=== PATIENT | female | born 1995 | race Caucasian/White ===

== ENCOUNTER → 2019-05-17 | Outpatient (CLI) | payer MEDICAID ==
--- NOTE | 2019-05-17 14:41 | Diagnostic Imaging Report ---
INDICATION: survey. TECHNIQUE: Multiple real-time grayscale images were obtained over the gravid uterus. COMPARISON: None FINDINGS: There is a single live fetus in a cephalic presentation. heart rate was recorded at 150 beats per minute. Placenta is anterior. Amniotic fluid volume is normal. Cervical length is 5.8 cm. survey demonstrates kidneys, bladder and stomach to be unremarkable. The brain is unremarkable. There is a four-chamber heart. There is a three-vessel cord with normal insertion. The spine is unremarkable. Maternal adnexa is unremarkable. Biometrical measurements are as follows: Biparietal 4.7 cm, age 20 weeks 3 days. Head circumference 17.5 cm, age 20 weeks 0 days. Abdominal circumference 14.7 cm, age 20 weeks 1 days. Femur length 3.4 cm, age 20 weeks 1 days. Sonographic estimate age: 20 weeks 3 days. Sonographic estimated date of delivery: 10/01/19. Estimated Weight: 343 gm (+/- 50 gm). LMP percentile: 23%. heart rate: 150 beats per minute. number: 1 of 1. IMPRESSION: Single live IUP of 20 weeks and 3 days gestational age. The estimated date of confinement sonographically is 10/01/2019. Dictated by: Dictated on workstation # [id number]
== END ==
LOC: RAD 13:10
PROVIDERS: ATTEND Obstetrics & Gynecology
DX: Z34.92 Encounter for supervision of normal pregnancy, unspecified, second trimester (principal); Z3A.20 20 weeks gestation of pregnancy
CPT/HCPCS: 76805

== ENCOUNTER 2019-09-26 06:00 | Inpatient (IN) | payer MEDICAID ==
[~2019-09-26] VITALS: Ht 170.2 cm; Wt 92.4 kg
--- NOTE | 2019-10-01 19:00 | NUR ---
CHANDLER WISE presented to unit via ambulation from home, accompanied by SO, for INDUCTION. CHANDLER WISE weighed, gowned, voided, and to bed. EFHM and TOCO applied, VS taken. CHANDLER WISE oriented to bed controls, call light, TV, heat, and A/C controls.
[2019-10-01 19:13] VITALS: BP 116/58
--- NOTE | 2019-10-01 19:43 | NUR ---
Called Dr. Shoemaker to inform that pt. here, new orders rc'd to use Antepartum & Cytotec PO protocols, may give Ambien 5 mg PO prn sleep, pt. may have breakfast if no change. POC reviewed w/pt, questions answered, pt. verbalized understanding.
[2019-10-01] MEDS ORDERED: LACTATED RINGERS 1,000 ML IV SCH (19:47)
[2019-10-01] MEDS ORDERED: MISOPROSTOL 100 MCG (CYTOTEC) TAB ONE (19:49)
[2019-10-01] MEDS ORDERED: D5 LR IV SOLUTION 1,000 ML IV ONE (19:49)
[2019-10-01] MEDS ORDERED: LACTATED RINGERS 1,000 ML IV ONE (19:49)
[2019-10-01] MEDS ORDERED: MISOPROSTOL 100 MCG (CYTOTEC) TAB PO NR (20:00)
[2019-10-01] MEDS ORDERED: TERBUTALINE INJ 1 MG/ML (BRETHINE) AMP SC PRN (20:00)
[2019-10-01] MEDS ORDERED: MINERAL OIL CONCENTRATE 99.9% 15 ML UDC TOP PRN (20:00)
--- NOTE | 2019-10-01 20:15 | NUR ---
Called Dr. Shoemaker, update given including FHR decel & variables, will cont. to monitor & give entire bolus before proceeding w/giving Cytotec.
[2019-10-01] MEDS ORDERED: PREN-142 PO (20:31)
[2019-10-01 20:42] LABS: BASOPHILS % (AUTO) 0 % (0-10); EOSINOPHILS # (AUTO) 0.1 10^3/uL (0.0-0.3); EOSINOPHILS % (AUTO) 1 % (0-10); HEMATOCRIT 31 % (35-52); HEMOGLOBIN 10.9 G/DL (11.5-16.0); LYMPHOCYTES # (AUTO) 2.7 X 10^3 (1.0-4.0); LYMPHOCYTES % (AUTO) 27 % (12-44); MEAN CORPUSCULAR HEMOGLOBIN 30 PG (25-34); MEAN CORPUSCULAR HGB CONC 35 G/DL (32-36); MEAN CORPUSCULAR VOLUME 86 FL (80-99); MONOCYTES # (AUTO) 0.6 X 10^3 (0.0-1.0); MONOCYTES % (AUTO) 6 % (0-12); NEUTROPHILS # (AUTO) 6.5 X 10^3 (1.8-7.8); NEUTROPHILS % (AUTO) 66 % (42-75); PLATELET COUNT 187 10^3/uL (130-400); RED CELL DISTRIBUTION WIDTH 12.8 % (10.0-14.5); WHITE BLOOD COUNT 9.9 10^3/uL (4.3-11.0)
[2019-10-01] MEDS: D5 LR IV SOLUTION 1,000 ML IV SCH (21:01)
[2019-10-01 21:14] VITALS: BP 110/54
[2019-10-01 21:43] VITALS: BP 121/70
[2019-10-01] MEDS ORDERED: CATHETER FLUSH 10 ML SYR IV SCH (22:00)
[2019-10-01 22:14] VITALS: BP 111/56
[2019-10-01 22:37] VITALS: BP 115/69
[2019-10-01] MEDS ORDERED: ZOLPIDEM 5 MG (AMBIEN) TAB PO ONE (23:30)
[2019-10-01 23:36] VITALS: BP 133/75
[2019-10-02] VITALS (63 sets, daily range): BP systolic 97–138; BP diastolic 44–95
--- NOTE | 2019-10-02 00:44 | NUR ---
Called Dr. Shoemaker to give update & request pain meds, no answer, left message.
--- NOTE | 2019-10-02 00:48 | NUR ---
Text Dr. Shoemaker, no reply.
--- NOTE | 2019-10-02 00:55 | NUR ---
Called Dr. Shoemaker, no answer.
[2019-10-02] MEDS: MISOPROSTOL 100 MCG (CYTOTEC) TAB PO SCH ×2 (01:00→04:00)
--- NOTE | 2019-10-02 01:05 | NUR ---
Called Dr. Shoemaker, no answer.
--- NOTE | 2019-10-02 01:07 | NUR ---
Called Dr. Garcia, OC, update given & new order rc'd for Morphine 5 mg IV X1. Will give.
[2019-10-02] MEDS ORDERED: morphine INJ 10 MG/ML 1ML (SYR OR VIAL) ONE (01:10)
[2019-10-02] MEDS ORDERED: morphine INJ 4 MG/ML 1 ML (VIAL/SYRINGE) IVP PRN (01:15)
[2019-10-02] MEDS ORDERED: morphine INJ 10 MG/ML 1ML (SYR OR VIAL) IVP ONE (02:30)
--- NOTE | 2019-10-02 03:23 | NUR ---
Dr. Shoemaker returned call, update given, will get epidural if pt requesting pain meds again.
[2019-10-02] MEDS ORDERED: SUFENTA 0.6MCG/ML BUPIVA 0.125 100 ML ONE (03:42)
[2019-10-02] MEDS: D5 LR IV SOLUTION 1,000 ML IV SCH ×2 (04:45→12:45)
[2019-10-02] MEDS: EPIDURAL (SUFENTA 0.6MCG/ML BUPIVA 0.125%) 100 ML BAG EPI SCH ×2 (04:59→12:08)
[2019-10-02] MEDS ORDERED: LACTATED RINGERS 1,000 ML IV SCH (05:05)
[2019-10-02] MEDS ORDERED: METOCLOPRAMIDE INJ 10 MG/2 ML (REGLAN) IV PRN (05:15)
[2019-10-02] MEDS ORDERED: NALOXONE 0.4 MG/ML 1 ML (NARCAN) VIAL IV PRN ×2 (05:15)
[2019-10-02] MEDS ORDERED: ONDANSETRON 4 MG/2 ML (SDV) Z0FRAN IV PRN (05:15)
[2019-10-02] MEDS ORDERED: diphenhydrAMINE 50 MG/ML INJ (BENADRYL) IV PRN (05:15)
[2019-10-02] MEDS ORDERED: OXYTOCIN/NORMAL SALINE 500 ML IV ONE (07:47)
[2019-10-02] MEDS ORDERED: FLU QUADRIvalent (5+ YOA) 2019-2020 (AFLURIA) 0.5 ML IM ONE (08:00)
[2019-10-02] MEDS ORDERED: OXYTOCIN/NORMAL SALINE 500 ML IV SCH ×2 (08:55→16:44)
[2019-10-02] MEDS ORDERED: LIDOCAINE 1% INJ 20 ML 20 ML VIAL ONE (13:07)
[2019-10-02] MEDS ORDERED: WITCH HAZEL(TUCKS) 40 EA JAR TOP PRN (16:45)
[2019-10-02] MEDS ORDERED: BENZOCAINE/MENTHOL (DERMOPLAST) 56 ML CAN TP PRN (16:45)
[2019-10-02] MEDS ORDERED: TETANUS,DIPTH,PERTUSS P/F (BOOSTRIX) 0.5 ML VIAL IM ONE (16:45)
[2019-10-02] MEDS ORDERED: MEASLES,MUMPS,RUBELLA 1 EA INJ SQ ONE (16:45)
[2019-10-02] MEDS ORDERED: DIBUCAINE (NUPERCAINAL) 1% OINT 30 GM TOP PRN (16:45)
--- NOTE | 2019-10-02 16:48 | OB Labor & Delivery Record ---
Vag Delivery Note Vag Delivery Note Date of Delivery: 10/02/19 Preoperative Diagnosis: Jeferson Garcia is a 24 /Para 1 / 0,Gestational Age 40 weeks for social induction to prevent the complications of post maturity Postoperative Diagnosis: Same Surgeon: ROXY COREAS Anesthesia: epidural Delivery Type: vaginal Findings: Viable female , apgars pending, weight pending Lacerations: left vaginal laceration Intact placenta with 3 vessel cord. No nuchal cord, body cord or shoulder dystocia \ Estimated Blood Loss: 300 ml Complications: None Condition: Stable Description of Procedure: The patient is a 24 year old female who presented for induction of labor. She was admitted and informed consent was obtained. Her labor course was remarkable for misoprostol, epidural placement and oxytocin augmentation. She had AROM at complete dilation. There was thin meconium noted. She progressed to complete dilatation and began to push. She was then set up for delivery. The 's head was delivered atraumatically in the JOLLY position. The shoulders and remainder of the infant's body were then delivered without difficulty. Upon delivery, the head was held below the level of the perineum and the mouth and nares were bulb suctioned. The cord was doubly clamped and cut and the was handed off to the pediatric staff. An intact placenta with 3-vessel cord delivered via Adriana and there was found to be minimal bleeding.~ Vigorous fundal massage was performed and the fundus was found to be firm. IV oxytocin was given. Examination of the vagina and perineum revealed a left vaginal sulcal laceration repaired in the usual fashion with 3-0 vicryl suture. Following the repair, sponge, instrument and needle counts were correct. Mom and baby were both in stable condition in the labor suite. Vitals - Labs Vital Signs - I&O Vital Signs Date Time Temp Pulse Resp B/P (MAP) Pulse Ox O2 Delivery O2 Flow Rate FiO2 10/02/19 14:09 82 18 104/46 (65) Room Air 10/02/19 13:54 71 18 113/44 (67) Room Air 10/02/19 13:40 72 18 122/55 (77) Room Air 10/02/19 12:53 77 18 125/63 (83) 99 Room Air 10/02/19 12:40 74 18 118/60 (79) 99 Room Air 10/02/19 12:23 73 18 108/64 (79) 97 Room Air 10/02/19 12:10 75 18 115/69 (84) 96 Room Air 10/02/19 11:54 82 18 119/59 (79) 98 Room Air 10/02/19 11:38 75 18 108/55 (72) 98 Room Air 10/02/19 11:28 36.2 10/02/19 11:24 82 18 119/63 (81) 99 Room Air 10/02/19 11:14 36.2 10/02/19 11:09 100 18 129/74 (92) 99 Room Air 10/02/19 10:52 67 18 102/61 (75) 96 Room Air 10/02/19 10:40 75 18 117/71 (86) 100 Room Air 10/02/19 10:28 36.4 88 18 130/60 (83) 99 Room Air 10/02/19 10:10 77 18 123/64 (83) 100 Room Air 10/02/19 09:52 70 18 109/58 (75) 99 Room Air 10/02/19 09:51 36.2 10/02/19 09:39 80 18 124/70 (88) 98 Room Air 10/02/19 09:08 78 18 126/73 (90) 98 Room Air 10/02/19 08:53 86 18 113/67 (82) 100 Room Air 10/02/19 08:38 77 18 119/69 (86) 97 Room Air 10/02/19 08:17 83 18 124/75 (91) 100 Room Air 10/02/19 08:02 89 18 123/65 (84) 98 Room Air 10/02/19 07:57 36.7 10/02/19 07:47 103 18 135/62 (86) 100 Room Air 10/02/19 07:40 36.4 10/02/19 07:32 67 18 101/52 (68) 99 Room Air 10/02/19 07:17 69 18 99/55 (70) 99 Room Air 10/02/19 07:00 69 18 97/55 (69) 98 Room Air 10/02/19 06:45 74 18 97/56 (70) 96 Room Air 10/02/19 06:30 71 18 101/58 (72) 98 Room Air 10/02/19 06:15 36.1 76 18 97/54 (68) 97 Room Air 10/02/19 06:00 90 18 111/63 (79) 97 Room Air 10/02/19 05:45 68 18 106/59 (75) 100 Room Air 10/02/19 05:41 78 18 117/61 (79) 99 Room Air 10/02/19 05:35 105 18 117/68 (84) 100 Room Air 10/02/19 05:30 99 18 125/67 (86) 100 Room Air 10/02/19 05:25 77 18 112/58 (76) 99 Room Air 10/02/19 05:23 85 18 112/57 (75) 98 Room Air 10/02/19 05:20 78 18 110/57 (74) 98 Room Air 10/02/19 05:18 73 18 115/59 (77) 99 Room Air 10/02/19 05:15 66 18 110/54 (72) 100 Room Air 10/02/19 05:11 77 18 118/58 (78) 100 Room Air 10/02/19 05:08 93 18 123/57 (79) 99 Room Air 10/02/19 05:05 75 18 123/58 (79) 99 Room Air 10/02/19 05:02 81 18 120/58 (78) 98 Room Air 10/02/19 04:59 90 18 134/63 (86) 98 Room Air 10/02/19 04:56 94 18 130/70 (90) 100 Room Air 10/02/19 04:53 86 18 127/78 (94) 99 Room Air 10/02/19 04:50 85 18 120/65 (83) 99 Room Air 10/02/19 04:47 91 18 130/75 (93) 97 Room Air 10/02/19 04:43 86 18 138/63 (88) 98 Room Air 10/02/19 04:37 36.1 90 18 126/95 (105) Room Air 10/02/19 03:37 36.3 10/02/19 02:37 89 18 132/82 (99) Room Air 10/02/19 01:36 70 18 125/67 (86) Room Air 10/02/19 00:44 94 18 134/93 (107) Room Air 10/01/19 23:36 86 18 133/75 (94) Room Air 10/01/19 22:37 36.4 80 18 115/69 (84) Room Air 10/01/19 22:14 82 18 111/56 (74) Room Air 10/01/19 21:43 77 18 121/70 (87) Room Air 10/01/19 21:14 82 18 110/54 (72) Room Air 10/01/19 19:13 36.7 102 18 98 Room Air I & O 10/02/19 07:00 Intake Total 3000 ml Balance 3000 ml Labs Laboratory Tests 10/01/19 20:16: White Blood Count 9.9, Red Blood Count 3.64L, Hemoglobin 10.9L, Hematocrit 31L, Mean Corpuscular Volume 86, Mean Corpuscular Hemoglobin 30, Mean Corpuscular Hemoglobin Concent 35, Red Cell Distribution Width 12.8, Platelet Count 187, Mean Platelet Volume 10.0, Neutrophils (%) (Auto) 66, Lymphocytes (%) (Auto) 27, Monocytes (%) (Auto) 6, Eosinophils (%) (Auto) 1, Basophils (%) (Auto) 0, Neut rophils # (Auto) 6.5, Lymphocytes # (Auto) 2.7, Monocytes # (Auto) 0.6, Eosinophils # (Auto) 0.1, Basophils # (Auto) 0.0 ROXY COREAS DO Oct 02, 2019 16:48 POS
[2019-10-02] MEDS: IBUPROFEN 600 MG (MOTRIN) TAB PO SCH (18:17)
--- NOTE | 2019-10-02 19:00 | NUR ---
REFER TO LABOR FLOW SHEET.
--- NOTE | 2019-10-02 21:00 | NUR ---
ASSESSMENTS DONE. PT C/O IV HURTING. ATTEMPTED TO FLUSH, PT PULLING ARM BACK SAYING IT HURTS TO BAD. PT WANTING IT REMOVED. INFORMED HER IF SHE MAY HAVE TO HAVE ANOTHER ONE IN. STATES SHE WOULD BE OK WITH THAT. IV REMOVED AT THIS TIME.
[2019-10-02] MEDS: DOCUSATE SODIUM 100 MG (COLACE) CAP PO SCH (21:04)
[2019-10-02] MEDS: ACETAMINOPHEN 500 MG TAB (TYLENOL) PO SCH (21:04)
[2019-10-02] MEDS ORDERED: CATHETER FLUSH 10 ML SYR IV SCH (22:00)
[2019-10-02] MEDS ORDERED: IBUP-844 PO (22:48)
[2019-10-02] MEDS ORDERED: FERR325T18 PO (22:48)
[2019-10-02] MEDS ORDERED: ACET-77 PO (22:48)
--- NOTE | 2019-10-02 22:50 | Discharge Inst-Women's Service ---
Discharge Inst-Women's Serv Depart Medication/Instructions New, Converted or Re-Newed RX: Transmitted to Pharmacy Final Diagnosis term vaginal delivery Problems Reviewed?: Yes Consults/Follow Up Additional Follow Up: Yes (2 weeks with Minerva; 6 week post exam) Activity Activity: Activity as Tolerated Driving Instructions: You May Drive NO SMOKING: NO SMOKING Nothing Inside Vagina: No Douching, No [place], No Tampons Diet Discharge Diet: No Restrictions Symptoms to Report to : Swelling Increased, Bleeding Excessive, Fever Over 101 Degrees F, Vaginal Bleeding Increase, Cramps in Feet or Legs, Vaginal Discharge ROXY Thorpe DO Oct 02, 2019 22:50 POS
[2019-10-03 00:30] VITALS: BP 115/55
[2019-10-03] MEDS: IBUPROFEN 600 MG (MOTRIN) TAB PO SCH ×4 (02:20→22:00)
[2019-10-03 06:21] LABS: BASOPHILS % (AUTO) 0 % (0-10); EOSINOPHILS # (AUTO) 0.1 10^3/uL (0.0-0.3); EOSINOPHILS % (AUTO) 1 % (0-10); HEMATOCRIT 29 % (35-52); HEMOGLOBIN 9.8 G/DL (11.5-16.0); LYMPHOCYTES # (AUTO) 3.2 X 10^3 (1.0-4.0); LYMPHOCYTES % (AUTO) 32 % (12-44); MEAN CORPUSCULAR HEMOGLOBIN 29 PG (25-34); MEAN CORPUSCULAR HGB CONC 33 G/DL (32-36); MEAN CORPUSCULAR VOLUME 88 FL (80-99); MEAN PLATELET VOLUME 10.2 FL (7.4-10.4); MONOCYTES # (AUTO) 0.6 X 10^3 (0.0-1.0); MONOCYTES % (AUTO) 6 % (0-12); NEUTROPHILS # (AUTO) 6.2 X 10^3 (1.8-7.8); NEUTROPHILS % (AUTO) 62 % (42-75); PLATELET COUNT 155 10^3/uL (130-400); RED CELL DISTRIBUTION WIDTH 12.7 % (10.0-14.5); WHITE BLOOD COUNT 10.1 10^3/uL (4.3-11.0)
[2019-10-03 06:56] VITALS: BP 115/68
[2019-10-03] MEDS: ACETAMINOPHEN 500 MG TAB (TYLENOL) PO SCH ×3 (06:56→16:15)
--- NOTE | 2019-10-03 07:00 | NUR ---
REPORT FROM FELIX KINCAID
--- NOTE | 2019-10-03 09:43 | Anesthesia-Regional Post-Op ---
Regional Patient Condition Mental Status: Alert, Oriented x3 Circulation: Same as Pre-Op Headache: Absent Sensation: Full Recovery Motor Block: Absent Post Op Complications Complications None Follow Up Care/Instructions Patient Instructions None needed. Anesthesia/Patient Condition Patient is doing well, no complaints, stable vital signs, no apparent adverse anesthesia problems. No complications reported per nursing. JEREMY JONES CRNA Oct 03, 2019 09:43
[2019-10-03 10:00] VITALS: BP 103/55
[2019-10-03] MEDS: DOCUSATE SODIUM 100 MG (COLACE) CAP PO SCH ×2 (10:00→22:00)
[2019-10-03] MEDS: PRENATAL VITAMIN 1 EA TAB PO SCH (10:00)
[2019-10-03] MEDS: FERROUS SULF 325 MG (IRON) TAB PO SCH (10:00)
--- NOTE | 2019-10-03 10:00 | NUR ---
INITIAL ASSESSMENT COMPLETED, VSS, NO DISTRESS NOTED, SEE INTERVENTIONS FOR DETAILED ASSESSMENTS, PLAN OF CARE EXPLAINED WILL MONITOR CLOSELY.
--- NOTE | 2019-10-03 10:35 | NUR ---
DR COREAS CALLED, UPDATED GIVEN NEW ORDERS RECEIVED.
--- NOTE | 2019-10-03 12:30 | NUR ---
DR COREAS HERE.
--- NOTE | 2019-10-03 12:33 | Postpartum Progress Note ---
Note Note Day # 1 s/p Subjective: Patient is without complaints. Ambulating, voiding. Tolerating a regular diet w ithout nausea or vomiting. Normal lochia. Pain is well controlled with oral pain medications. breast feeding. Objective: Laboratory Tests Test 10/03/19 05:53 Range/Units White Blood Count 10.1 4.3-11.0 10^3/uL Red Blood Count 3.33 L 4.35-5.85 10^6/uL Hemoglobin 9.8 L 11.5-16.0 G/DL Hematocrit 29 L 35-52 % Mean Corpuscular Volume 88 80-99 FL Mean Corpuscular Hemoglobin 29 25-34 PG Mean Corpuscular Hemoglobin Concent 33 32-36 G/DL Red Cell Distribution Width 12.7 10.0-14.5 % Platelet Count 155 130-400 10^3/uL Mean Platelet Volume 10.2 7.4-10.4 FL Neutrophils (%) (Auto) 62 42-75 % Lymphocytes (%) (Auto) 32 12-44 % Monocytes (%) (Auto) 6 0-12 % Eosinophils (%) (Auto) 1 0-10 % Basophils (%) (Auto) 0 0-10 % Neutrophils # (Auto) 6.2 1.8-7.8 X 10^3 Lymphocytes # (Auto) 3.2 1.0-4.0 X 10^3 Monocytes # (Auto) 0.6 0.0-1.0 X 10^3 Eosinophils # (Auto) 0.1 0.0-0.3 10^3/uL Basophils # (Auto) 0.0 0.0-0.1 10^3/uL 10/03/19 06:56 Temp 36.2 Pulse 77 Resp 20 B/P (MAP) 115/68 (84) 10/03/19 00:00 Intake Total 1500 ml Balance 1500 ml Physical Exam: General - Alert and oriented, no apparent distress Abdomen - Soft, appropriately tender to palpation, non-distended, fundus firm at umbilicus Extremities - no edema, negative Jacqueline's bilaterally Assessment: 1. post- day # 1, status post spontaneous vaginal delivery. Recovering well, hemodynamically stable Plan: Routine care. Encourage breast feeding. Encourage ambulation. Ferrous sulfate supplementation. Plan for discharge today Vitals - Labs Vital Signs - I&O Vital Signs Date Time Temp Pulse Resp B/P (MAP) Pulse Ox O2 Delivery O2 Flow Rate FiO2 10/03/19 06:56 36.2 77 20 115/68 (84) 10/03/19 00:30 36.4 80 20 115/55 (75) 97 10/02/19 20:15 36.6 90 20 115/61 (79) 10/02/19 16:37 92 18 118/55 (76) Room Air 10/02/19 16:22 100 18 113/55 (74) Room Air 10/02/19 16:07 93 18 121/60 (80) Room Air 10/02/19 15:52 102 18 117/56 (76) Room Air 10/02/19 15:38 37.1 90 18 126/59 (81) Room Air 10/02/19 15:23 88 18 119/61 (80) Room Air 10/02/19 15:08 37.2 87 18 132/62 (85) Room Air 10/02/19 14:46 37.7 10/02/19 14:38 94 18 119/77 (91) Room Air 10/02/19 14:23 37.2 91 18 108/53 (71) Room Air 10/02/19 14:09 82 18 104/46 (65) Room Air 10/02/19 13:54 71 18 113/44 (67) Room Air 10/02/19 13:40 72 18 122/55 (77) Room Air 10/02/19 12:53 77 18 125/63 (83) 99 Room Air 10/02/19 12:40 74 18 118/60 (79) 99 Room Air I & O 10/03/19 07:00 Intake Total 1500 ml Balance 1500 ml Labs Laboratory Tests 10/03/19 05:53: White Blood Count 10.1, Red Blood Count 3.33L, Hemoglobin 9.8L, Hematocrit 29L, Mean Corpuscular Volume 88, Mean Corpuscular Hemoglobin 29, Mean Corpuscular Hemoglobin Concent 33, Red Cell Distribution Width 12.7, Platelet Count 155, Mean Platelet Volume 10.2, Neutrophils (%) (Auto) 62, Lymphocytes (%) (Auto) 32, Monocytes (%) (Auto) 6, Eosinophils (%) (Auto) 1, Basophils (%) (Auto) 0, Neutrophils # (Auto) 6.2, Lymphocytes # (Auto) 3.2, Monocytes # (Auto) 0.6, Eosinophils # (Auto) 0.1, Basophils # (Auto) 0.0 ROXY COREAS DO Oct 03, 2019 12:33
[2019-10-03 16:51] VITALS: BP 116/76
[2019-10-03 20:00] VITALS: BP 121/67
--- NOTE | 2019-10-03 20:37 | NUR ---
Call to Dr Shoemaker to verify the hold on the discharge order. POC discussed with pt and plan for discharge tomorrow.
--- NOTE | 2019-10-03 22:00 | NUR ---
Pt educated feeding schedule and co-sleeping, mother receptive to education.
[2019-10-04] MEDS: ACETAMINOPHEN 500 MG TAB (TYLENOL) PO SCH ×2 (01:56→10:26)
[2019-10-04 02:00] VITALS: BP 133/64
[2019-10-04] MEDS: IBUPROFEN 600 MG (MOTRIN) TAB PO SCH ×2 (04:22→10:26)
[2019-10-04] MEDS: FERROUS SULF 325 MG (IRON) TAB PO SCH (08:05)
[2019-10-04] MEDS: PRENATAL VITAMIN 1 EA TAB PO SCH (08:05)
[2019-10-04] MEDS: DOCUSATE SODIUM 100 MG (COLACE) CAP PO SCH (08:05)
[2019-10-04 08:11] VITALS: BP 118/61
--- NOTE | 2019-10-04 08:13 | NUR ---
Pt refused flu vaccine.
--- NOTE | 2019-10-04 12:00 | NUR ---
CHANDLER WISE demonstrates understanding of discharge instructions and accurately returns instructions upon questioning. Copy of Post-Discharge Instructions and Medication Discharge Instructions given to pt. CHANDLER WISE is able to manage continuing needs after discharge. Patients belongings returned to pt. Skin dry and intact; no breakdown noted. Patient discharged from [facility]- on 10/04/19 at 1200. CHANDLER WISE left floor ambulatory, accompanied by women's services staff.
== END 2019-10-04 12:00 | disposition home or self-care (01) | DRG 807 ==
LOC: LDRP 10-01 19:00
PROVIDERS: ADMIT Obstetrics & Gynecology; ATTEND Obstetrics & Gynecology
PROC: 3E0DXGC Introduction of Other Therapeutic Substance into Mouth and Pharynx, External Approach (ICD-10-PCS; 2019-10-01)
PROC: 10E0XZZ Delivery of Products of Conception, External Approach (ICD-10-PCS; principal; 2019-10-02)
PROC: 0HQ9XZZ Repair Perineum Skin, External Approach (ICD-10-PCS; 2019-10-02)
DX: O48.0 Post-term pregnancy (principal); O70.0 First degree perineal laceration during delivery; Z37.0 Single live birth; Z3A.40 40 weeks gestation of pregnancy
CPT/HCPCS: 36415; 83033; 85025; 86850; 86900; 86901

== ENCOUNTER 2019-12-19 14:55 | Emergency (ER) | payer MEDICAID ==
[~2019-12-19] VITALS: Ht 167 cm; Wt 78.0 kg
[~2019-12-19 14:55] MED LIST: ACET-78 PO; FERR325T18 PO; IBUP-844 PO; PREN-142 PO
[2019-12-19 15:05] VITALS: BP 116/69
--- NOTE | 2019-12-19 15:43 | ED Integumentary General ---
General Chief Complaint: General Problems/Pain Stated Complaint: RINGWORM Nursing Triage Note: PT STATES SHE WAS EXPOSED TO RING WORM AND THINKS SHE MIGHT HAVE IT. History of Present Illness Date Seen by Provider: Dec 19, 2019 Time Seen by Provider: 15:20 Initial Comments 24-year-old female presents for a rash to her axilla and groin. She states that it itches intermittently. She has not tried any treatment. She is concerned because a stepdaughter his ringworm. She denies change in skin care products, detergents or other causative factors. No pets in the home and no history of bed bugs. Timing/Duration: week, intermittent Severity: mild Location: torso Possible Cause: no cause identified Associated Symptoms: denies symptoms Allergies and Home Medications Allergies Coded Allergies: No Known Drug Allergies (Unverified , 01/21/15) Home Medications No Active Prescriptions or Reported Meds Patient Home Medication List Home Medication List Reviewed: Yes Review of Systems Review of Systems Constitutional: no symptoms reported, see HPI Skin: see HPI, rash All Other Systems Reviewed Negative Unless Noted: Yes Past Invhmsj-Wckfsi-Qlpimj Hx Past Med/Social Hx: Reviewed Nursing Past Med/Soc Hx Patient Social History Alcohol Use: Denies Use Recreational Drug Use: No Smoking Status: Never a Smoker Type Used: Cigarettes Former Smoker, Quit: Jul 01, 2019 Recent Foreign Travel: No Contact w/Someone Who Travel: No Recent Infectious Disease Expo: No Recent Hopitalizations: No Seasonal Allergies Seasonal Allergies: No Past Medical History Surgeries: No Respiratory: No Cardiac: No Neurological: No Genitourinary: No Gastrointestinal: Yes (Hep C +) Hepatitis Musculoskeletal: No Endocrine: No HEENT: No Cancer: No Psychosocial: No Integumentary: No Blood Disorders: No Family Medical History Cardiovascular disease GRANDFATHER, MATERNAL GRANDFATHER, PATERNAL Diabetes mellitus GRANDFATHER, MATERNAL GRANDFATHER, PATERNAL Hypertension 19 MOTHER Physical Exam Vital Signs Vital Signs - First Documented 12/19/19 15:05 Temp 37.0 Pulse 78 Resp 16 B/P (MAP) 116/69 (85) Pulse Ox 97 Capillary Refill : Less Than 3 Seconds General Appearance: WD/WN, no apparent distress HEENT: PERRL/EOMI, normal ENT inspection, TMs normal, pharynx normal Neck: non-tender, full range of motion, supple, normal inspection Cardiovascular: normal peripheral pulses, regular rate, rhythm Respiratory: chest non-tender, lungs clear, normal breath sounds Gastrointestinal: normal bowel sounds, non tender, soft Neurologic/Psychiatric: no motor/sensory deficits, alert, normal mood/affect, oriented x 3 Skin: normal color, warm/dry, rash (petechial areas to axillas and groin. Mild pruritus, no induration, fluctuance, erythema or warmth.) Progress/Results/Core Measures Results/Orders Vital Signs/I&O 12/19/19 15:05 Temp 37.0 Pulse 78 Resp 16 B/P (MAP) 116/69 (85) Pulse Ox 97 Blood Pressure Mean: 85 Progress Progress Note : Time: 15:20 Progress Note Patient seen and evaluated, discussed that the rash appears to be from some type of insect bite, the patient denies having animals were it could be from fleas. She has not been outside over the last week and the symptoms of been present approximately that long. Will treat conservatively with hydrocortisone and Benadryl since there is pruritus. Recommended she discard her current razor and obtain a new one. Discharge instructions and return precautions reviewed with her. Departure Impression Primary Impression: General medical exam Additional Impression: Skin rash Disposition: HOME, SELF-CARE Condition: Improved Departure-Patient Inst. Decision time for Depature: 15:30 Ref[facility]: [facility] [place]LOCAL PHYSICIAN (PCP) Primary Care Physician Patient Instructions: Skin Rash (DC) Add. Discharge Instructions: Apply Hydrocortisone cream (OTC) to areas of rash. Take Benadryl 25 mg every 8 hours, as needed for itching. Follow-up with your primary care provider if symptoms are not improving or worsen. Establish care with a Primary Care Provider, as the Emergency Dept is for life- threatening health care needs. Urgent Cares and Walk In clinics are available for non-emergency problems. Return to the emergency department for new, urgent health care needs. All discharge instructions reviewed with patient and/or family. Voiced understanding. Scripts No Active Prescriptions or Reported Meds STEFANY MOLINA Dec 19, 2019 15:43
--- OUTSIDE RECORDS SUMMARY | 2019-12-24 08:31 | XMS REPORT ---
Author Author [place]. Organization [facility] Address [address] [address] Care Team Providers Care Nutter Up Name Role Phone ERIC GOSS Unavailable Unavailable JAMAL KING Unavailable Unavailable NO, LOCAL PHYSICIAN Unavailable Unavailable RAYNELYNN RAMIREZ Unavailable RAYNE LYNN Unavailable Migration, Doctor Unavailable Unavailable Migration, Doctor Unavailable Unavailable Migration, Doctor Unavailable Unavailable RAYNE, LYNN Unavailable Unavailable Unavailable Migration, Doctor Unavailable Unavailable zzHEIMAN, SKYLER Unavailable zzHEIMAN, SKYLER Unavailable DONAVAN PAZ APRN Unavailable Unavailable zzHEIMAN, SKYLER Unavailable ROXY COREAS DO Unavailable Unavailable ROXY COREAS DO Unavailable Unavailable NO, LOCAL PHYSICIAN PCP Unavailable PCP, OUTSIDE Unavailable Unavailable JAQUELINE MAYORGA Unavailable zzHEIMAN, SKYLER Unavailable Allergies Normalized Allergy Reported Date of Reaction(s) Care Provider Facility Allergy Type classification allergen Allergy Onset DA (2 Unclassified No Known Drug 01-21-2015 - no information DONAVAN PAZ [facility] Via sources.) Allergies [facility] ([id number]) Medications Medication Ingredient Drug Dose Dates Status Sig Sig Care Class(es) (Normalized) (Original) Provid er acetaminoph Acetaminoph no 10-03-20 Complete no Acetamino phe no en 500 mg en information 19 - d information n n christianne oral tablet 12-19-19 Discontinued (no (2 20 1000 ORAL phone) sources.) Give Every 8 Hrs On Schedule 120 October 02, 2019 10:48pm December 19, 2019 ferrous ferrous no 10-03-20 Complete no Ferrous no sulfate 325 sulfate information 19 - d information Sulfat e name mg oral 03-04-20 Discontinued (no tablet (2 20 325 ORAL phone) sources.) Daily@0800 90 October 02, 2019 10:48pm December 19, 2019 ibuprofen Ibuprofen Nonsteroida 10-03-20 Complete no Ibuprof en no 600 mg oral l 19 - d information Discontinued name tablet (2 Anti-inflam 12-19-19 600 ORAL (no sources.) [facility] 20 Every 6 phone) Hours 40 October 02, 2019 10:48pm December 19, 2019 no no 12-19-19 Complete no Vit no information Vit information 20 d information No.124/ Iron/ name (2 No.124/Iron Fa (no sources.) /Fa Discontinued phone) 1 ORAL Daily December 19, 2019 Active no no name inform Vit (no ation No.124/I phone) elizabeth/Fa Active 1 ORAL Daily Problems Active Problems Problem Normalized Date of Normalized Normalized Provider Fac ility Classification Problem(s) Problem Problem Problem Sta tus Onset/Resoluti Duration on Residual 40 weeks Episodic Active ROHINI ZHU Via codes; gestation of [facility] - (4 sources.) [place] ([address]378) Other Encounter for Episodic Active ROHINI ZHU Via and supervision of [facility] delivery normal Hospital - including , [place] normal (6 unspecified, (76384) sources.) second trimester Translations: [ SINGLE LIVE ] Other skin Eruption Episodic Active LOCAL NO [place] Vi a disorders (1 [facility] source.) Hospital (93060) Menstrual Excessive or Chronic Active DONAVAN NOVA Via disorders (4 frequent [facility] sources.) menstruation [facility] (37076) OB-related First degree Episodic Active ROHINI ZHU Via trauma to perineal [facility] perineum and laceration [facility] vulva (4 during [place] sources.) delivery (02935) Residual Gestation Episodic Active LOCAL NO [place] Vi a codes; period, 40 Jacqueline unclassified weeks Hospital (2 sources.) (66732) Substance-rela Other Episodic Active JAQUELINE walker deandre disorders psychoactive [id number] [place] [address] (2 sources.) substance use, of [place], [place] ([address]) uncomplicated Translations: [ - IVDU (intravenous drug user) F19.90] Unclassified Planned no information Active LOCAL NO Ascen mike Via (2 sources.) procedure [facility] (58614) Prolonged Post-term Episodic Active ROHINI ZHU Via (4 DO [facility] sources.) [facility] (76895) Past or Other Problems Problem Normalized Date of Normalized Normalized Provider Fac ility Classification Problem(s) Problem Problem Problem Sta tus Onset/Resoluti Duration on Residual 20 weeks no information no information ROHINI ZHU Via codes; gestation of DO [facility] unclassified Hospital - (1 source.) [place] (97203) Residual 20 weeks Episodic Completed ROHINI ZHU Via codes; gestation of DO [facility] unclassified Hospital - (1 source.) [place] (43666) Unclassified Patient no information Completed LOCAL NO Ascsilver mike Via (1 source.) encounter [facility] (31373) Procedures Procedure Normalized Procedure Procedure Result Performer Facility Date 08-10-2018 Collection venous no information no name (no phone) [facility] blood venipuncture [facility] (23104) 07-18-2014 Cul bact xcpt urine no information no name (no phon e) [facility] blood/stool aerobic [facility] (91654) 10-02-2019 DELIVERY OF PRODUCTS no information no name (no tahmina ne) [facility] Via [facility] (25229) 08-10-2018 Handlg&/or convey of no information no name (no tahmina ne) [facility] spec for tr office to [facility] (79690) 08-10-2018 [place] trichomonas no information no name (no ph one) [facility] vaginalis [facility] (31552) 07-18-2014 [place] chlamydia no information no name (no phone) [facility] trachomatis amplified [facility] probe [facility] (11594) 08-10-2018 [place] hepatitis c no information no name (no phone) [facility] quant & reverse [facility] bar staff [place] ([address]60) 07-18-2014 [place] trichomonas no information no name (no phone) [facility] vaginalis direct probe [facility] (55457) 08-10-2018 Infectious agent no information no name (no phone) [facility] enzymatic actv oth/thn [facility] virus [place] (83292) 10-01-2019 INTRODUCE OTH THERAP no information no name (no tahmina ne) [facility] Via [facility] IN MOUTH/PHAR [facility] (31972) 08-10-2018 No Charge no information no name (no phone) [facility] (71669) 10-02-2019 Repair Perineum Skin, no information no name (no ph one) [facility] Via [facility] (68134) 07-18-2014 Urine test no information no name (no tahmina ne) [facility] visual color cmprsn [facility] (38916) Immunizations Normalized Immunization Date Notes Care Provider Facili ty Immunization diphtheria, tetanus 06-20-1997 no information no name [facility] tox[facility] and [facility] acellular pertussis [facility] vaccine (24055) diphtheria, tetanus 11-24-1995 no information no name [facility] toxoids and [facility] acellular pertussis [facility] vaccine (19870) diphtheria, tetanus 1994 no information no name Com [facility] toxoids and [facility] acellular pertussis [facility] vaccine (14849) diphtheria, tetanus 1994 no information no name Com [facility] toxoids and [facility] acellular pertussis [facility] vaccine (52869) haemophilus 11-24-1995 no information no name [facility] ealth influenzae type b [facility] vaccine, PRP-T [facility] conjugate (00297) haemophilus 1994 no information no name [facility] H ealth influenzae type b [facility] vaccine, PRP-[facility] conjugate (30226) haemophilus 1994 no information no name [facility] ealth influenzae type b [facility] vaccine, PRP-T [facility] conjugate (03563) human papilloma 11-07-2008 no information no name [facility] virus vaccine, [facility] quadrivalent [facility] (72347) tetanus and 07-27-2008 no information no name [facility] ealth diphtheria toxoids, [facility] adsorbed, [facility] preservative free, (53198) for adult use (2 Lf of tetanus toxoid and 2 Lf of diphtheria toxoid) tetanus toxoid, 07-04-2019 no information no name [facility] reduced diphtheria [facility] toxoid, and - [facility] acellular pertussis (74595) vaccine, adsorbed tetanus toxoid, 05-27-2009 no information no name [facility] reduced diphtheria [facility] toxoid, and - [facility] acellular pertussis (06271) vaccine, adsorbed Results Test Name Value Interpretation Reference Range Date Time Fa cility (Normalized) (Normalized) (Medline Reference) urine drug screen (in house) on null URINE DRUG no information (no code) [facility] Healt h SCREEN (IN Center of HOUSE) [facility] (90458) URINE DRUG 3352170 (no code) [facility]) [facility] (83032) URINE DRUG 06/2019 (no code) [facility] Healt h SCREEN (IN Center of HOUSE) [facility] (07192) URINE DRUG no information (no code) Replaced By [facility] SCREEN (IN Center of HOUSE) [facility] (59323) trichomonas (in house) on null TRICHOMONAS (IN no information (no code) [facility] HOUSE) [facility] (45076) [place] ([place] 385609 (no code) [facility] HOUSE) [facility] (39374) TRICHOMONAS (IN 05/2019 (no code) [facility] HOUSE) [facility] (07544) bacterial vaginosis (in house) on null BACTERIAL 2397 (no code) Replaced By [facility] VAGINOSIS (IN Center of HOUSE) [facility] (56364) BACTERIAL 02/2019 (no code) Replaced By [facility] VAGINOSIS (IN Center of HOUSE) [facility] (86997) No panel information on 2019-11-28 [id number] 170 (no code) [facility] Hea lth bulin [Mass/Vol] [facility] (15816) ALT [Catalytic 156 U/L (H) 4 - 40 U/L [facility] H ealth activity/Vol] [facility] (65310) Apolipoprotein 134 (no code) Replaced By [facility] A-I [Mass/Vol] [facility] (21080) Bilirubin 0.6 mg/dL (no code) 0.1 - 1.2 mg/dL [facility] [Mass/Vol] [facility] (33281) Fibrosis stage F0 (no code) Replaced By [facility] Ql [facility] (93339) FOOTNOTE SEE NOTE (no code) [facility] (53973) Gamma glutamyl 12 U/L (no code) 0 - 30 U/L [facility] ealt transferase [facility] [Catalytic [facility] activity/Vol] (87381) Haptoglobin 100 mg/dL (no code) 41 - 165 mg/dL [facility] [Mass/Vol] [facility] (48372) Liver fibrosis SEE NOTE (no code) [facility] interpretation [facility] (S) [Interp] [facility] (71885) Liver fibrosis 0.07 (no code) [facility] score Calculated [facility] by FibroSure [facility] [Score] (82551) Necroinflamm SEE NOTE (no code) [facility] activity [facility] Ql (S) [Interp] (85611) Necroinflammator A3 (no code) [facility] Hea lth y activity grade [facility] (79068) Necroinflammator 0.66 (no code) [facility] Hea lt y activity score [facility] [Score] [facility] (75775) REFERENCE ID [id number] (no code) [facility] (37833) No panel information on 2019-10-19 Albumin 4.2 g/dL (N) 3.4 - 5.4 g/dL [facility] [Mass/Vol] [facility] (31187) Albumin/Globulin 1.4 {ratio} (N) 1 - 2.5 {ratio} Comm [facility] [Mass ratio] [facility] (44711) ALP [Catalytic 131 U/L (H) 44 - 147 U/L [facility] activity/Vol] [facility] (29513) ALT [Catalytic 20 U/L (N) 4 - 40 U/L [facility] ealth activity/Vol] [facility] (15853) AST [Catalytic 21 U/L (N) 10 - 34 U/L [facility] activity/Vol] [facility] (72056) Basophils (Bld) 0.028 10*3/uL (N) 0 - 0.3 10*3/uL [facility] Health [#/Vol] [facility] (59337) Basophils/100 0.5 % (N) 0.5 - 1 % [facility] WBC (Bld) [facility] (16134) Bilirubin 0.4 mg/dL (N) 0.1 - 1.2 mg/dL [facility] [Mass/Vol] [facility] (99284) Calcium 9.7 mg/dL (N) 8.5 - 10.2 mg/dL [facility] [Mass/Vol] [facility] (16545) Chloride 105 mmol/L (N) 95 - 106 mmol/L [facility] [Moles/Vol] [facility] (28316) CO2 [Moles/Vol] 26 mmol/L (N) 23 - 29 mmol/L [facility] (20753) COMMENT no information (no code) Replaced By [facility] (28682) Creatinine 0.95 mg/dL (N) Replaced By [facility] [Mass/Vol] [facility] (55115) Eosinophils 0.127 10*3/uL (N) 0.05 - 0.5 [facility] alth (Bld) [#/Vol] 10*3/uL [facility] (74509) Eosinophils/100 2.3 % (N) 1 - 4 % [facility] WBC (Bld) [facility] (66286) Erythrocyte 11.8 % (N) 11.6 - 14.6 % [facility] ealth distribution [facility] (RBC) [facility] [Ratio] (61350) Exp date +~03/2021 (no code) Replaced By [facility] (06577) GFR/1.73 sq M 96 (N) 90 - 120 [facility] predicted among mL/min/{1.73_m2} mL/min/{1.73_m2} [facility] [place] MDRD [facility] (S/P/Bld) [Vol (74868) rate/Area] GFR/1.73 sq 83 (N) 90 - 120 [facility] M.predicted MDRD mL/min/{1.73_m2} mL/min/{1.73_m2} [facility] (S/P/Bld) [Vol [facility] rate/Area] (73479) Globulin (S) 3.1 g/dL (N) 2 - 3.5 g/dL [facility] ealt [Mass/Vol] [facility] (11615) Glucose 120 mg/dL (H) 60 - 125 mg/dL [facility] [Mass/Vol] [facility] (60461) HAV IgM IA Ql NON-REACTIVE (N) [facility] (87307) HBV core IgM IA NON-REACTIVE (N) [facility] (50570) HBV surface Ag NON-REACTIVE (N) [facility] IA Ql [facility] (31830) HCV Ab IA Ql REACTIVE (A) [facility] (75871) HCV Ab 31.40 {ratio} (H) 0 - 3 {ratio} [facility] Signal/Cutoff IA [facility] [Rel units/Vol] [facility] (67828) HCV RNA 6.27 (H) [facility] RADHA+probe [Log [facility] units/Vol] [facility] (48452) HCV RNA [id number] (H) [facility] RADHA+probe Qn [facility] (93917) Hematocrit (Bld) 40.8 % (N) 36.1 - 50.3 % [facility] [Volume [facility] fraction] [facility] (87488) Hemoglobin (Bld) 13.6 g/dL (N) 12.1 - 17.2 g/dL [facility] [Mass/Vol] [facility] (27969) HIV 1+2 Ab+HIV1 NON-REACTIVE (N) [facility] p24 Ag IA Ql [facility] (77496) INR Coag (PPP) 1.0 {INR} (N) 0.9 - 1.1 {INR} [facility] [Relative time] [facility] (93219) Lot # [id number] (no code) Replaced By [facility] (55662) Lot # [id number] (no code) Replaced By [facility] (50524) Lymphocytes 2.404 10*3/uL (N) 0.9 - 2.9 [facility] (Bld) [#/Vol] 10*3/uL [facility] (27419) Lymphocytes/100 43.7 % (N) 20 - 40 % [facility] WBC (Bld) [facility] (77487) MCH (RBC) 29.4 pg (N) 27 - 31 pg [facility] Heal th [Entitic mass] [facility] (01786) MCHC (RBC) 33.3 g/dL (N) 32 - 36 g/dL [facility] He alth [Mass/Vol] [facility] (22672) MCV (RBC) 88.3 fL (N) 80 - 100 fL [facility] Hea lth [Entitic vol] [facility] (03416) MDMA 09/2020~+~negati (no code) [facility]~nega [facility] tive~positive~ne [facility] gative~negative~ (00413) negative~negativ e~negative~negat liset~negative~neg ative Monocytes (Bld) 0.237 10*3/uL (N) 0.3 - 0.9 [facility] [#/Vol] 10*3/uL [facility] (12179) Monocytes/100 4.3 % (N) 2 - 8 % [facility] He alth WBC (Bld) [facility] (02235) Neutrophils 2.706 10*3/uL (N) 1.7 - 7 10*3/uL [facility] (Bld) [#/Vol] [facility] (32857) Neutrophils/100 49.2 % (N) 40 - 60 % [facility] Health WBC (Bld) [facility] (96001) Platelet mean 10.8 fL (N) 7.2 - 11.7 fL [facility] volume (Bld) [facility] [Entitic vol] [facility] (09364) Platelets (Bld) 223 10*3/uL (N) 150 - 450 [facility] [#/Vol] 10*3/uL [facility] (54130) Potassium 4.2 mmol/L (N) 3.7 - 5.2 mmol/L [facility] [Moles/Vol] [facility] (55566) Protein 7.3 g/dL (N) 6.4 - 8.3 g/dL [facility] [Mass/Vol] [facility] (09279) PT Coag (PPP) 10.3 s (N) 9.4 - 12.5 s [facility] [Time] [facility] (12772) RBC (Bld) 4.62 10*6/uL (N) 4.2 - 6.1 [facility] Hea lth [#/Vol] 10*6/uL [facility] (46322) RESULTS no information (no code) [facility] (30618) Sodium 140 mmol/L (N) 135 - 145 mmol/L [facility] [Moles/Vol] [facility] (99329) Urea nitrogen 20 mg/dL (N) 7 - 20 mg/dL [facility] [Mass/Vol] [facility] (13425) Urea NOT APPLICABLE (no code) [facility] nitrogen/Creatin [facility] [Mass ratio] [facility] (70088) WBC (Bld) 5.5 10*3/uL (N) 3.5 - 10.5 [facility] [#/Vol] 10*3/uL [facility] (81609) venous blood hemoglobin measurement (mass/volume) on 2019-10-03 Hemoglobin (Bld) 9.8 g/dL (L) 12.1 - 17.2 g/dL 10-03-2019 [place] Via [Mass/Vol] 08:53-0500 [facility] (02824) blood monocytes/100 leukocytes on 2019-10-03 Monocytes/100 6 % (no code) 2 - 8 % 10-03-2019 [facility] Via WBC (Bld) 08:53-0500 [facility] (52777) blood monocytes automated count (number/volume) on 2019-10-03 Monocytes (Bld) 0.6 10*3/uL (no code) 0.3 - 0.9 10-03-2019 Asce nsion Via [#/Vol] 10*3/uL 08:53-0500 [facility] (90338) blood hematocrit (volume fraction) on 2019-10-03 Hematocrit (Bld) 29 % (L) 36.1 - 50.3 % 10-03-2019 [facility] Via [Volume 08:53-0500 [facility] fraction] (93013) blood erythrocytes automated count (number/volume) on 2019-10-03 RBC (Bld) 3.33 10*6/uL (L) 4.2 - 6.1 10-03-2019 [place] Via [#/Vol] 10*6/uL 08:53-0500 [facility] (32803) automated erythrocyte mean corpuscular volume (mcv) measurement on 2019-10-03 MCV (RBC) 88 fL (no code) 80 - 100 fL 10-03-2019 [place] Via [Entitic vol] 08:53-0500 [facility] (79587) automated erythrocyte mean corpuscular hemoglobin concentration measurement (mass/volume) on 2019-10-03 MCHC (RBC) 33 g/dL (no code) 32 - 36 g/dL 10-03-2019 [facility] Via [Mass/Vol] 08:53-0500 [facility] (99212) automated erythrocyte mean corpuscular hemoglobin (mass per erythrocyte) on 2019-10-03 MCH (RBC) 29 pg (no code) 27 - 31 pg 10-03-2019 [place] V ia [Entitic mass] 08:53-0500 [facility] (76805) automated erythrocyte distribution width ratio on 2019-10-03 Erythrocyte 12.7 % (no code) 11.6 - 14.6 % 10-03-2019 [facility] Via distribution 08:53-0500 [facility] width (RBC) (22080) [Ratio] automated eosinophil count on 2019-10-03 Eosinophils 0.1 10*3/uL (no code) 0.05 - 0.5 10-03-2019 [facility] Via (Bld) [#/Vol] 10*3/uL 08:53-0500 [facility] al (38017) automated blood platelet mean volume measurement on 2019-10-03 Platelet mean 10.2 fL (no code) 7.2 - 11.7 fL 10-03-2019 Asce nsion Via volume (Bld) 08:530500 [facility] [Entitic vol] (05611) automated blood platelet count (count/volume) on 2019-10-03 Platelets (Bld) 155 10*3/uL (no code) 150 - 450 10-03-2019 As[facility] Via [#/Vol] 10*3/uL 08:530500 [facility] (50227) automated blood neutrophils/100 leukocytes on 2019-10-03 Neutrophils/100 62 % (no code) 40 - 60 % 10-03-2019 [facility] WBC (Bld) 08:530500 [facility] (82316) automated blood neutrophil count (number/volume) on 2019-10-03 Neutrophils 6.2 10*3/uL (no code) 1.7 - 7 10*3/uL 10-03-2019 As cension Via (Bld) [#/Vol] 08:530500 [facility] (31699) automated blood lymphocytes/100 leukocytes on 2019-10-03 Lymphocytes/100 32 % (no code) 20 - 40 % 10-03-2019 [facility] WBC (Bld) 08:530500 [facility] (84330) automated blood lymphocyte count (number/volume) on 2019-10-03 Lymphocytes 3.2 10*3/uL (no code) 0.9 - 2.9 10-03-2019 [facility] Via (Bld) [#/Vol] 10*3/uL 08:530500 [facility] al (13116) automated blood leukocyte count (number/volume) on 2019-10-03 WBC (Bld) 10.1 10*3/uL (no code) 3.5 - 10.5 10-03-2019 [facility] [#/Vol] 10*3/uL 08:530500 [facility] (39332) automated blood eosinophils/100 leukocytes on 2019-10-03 Eosinophils/100 1 % (no code) 1 - 4 % 10-03-2019 [facility] WBC (Bld) 08:53-0500 [facility] (66957) automated blood basophils/100 leukocytes on 2019-10-03 Basophils/100 0 % (no code) 0.5 - 1 % 10-03-2019 [facility] WBC (Bld) 08:53-0500 [facility] (98517) automated blood basophil count (number/volume) on 2019-10-03 Basophils (Bld) 0.0 10*3/uL (no code) 0 - 0.3 10*3/uL 10-03-2019 [place] Via [#/Vol] 08:53-0500 [facility] (39663) No panel information on 2019-01-29 Exp date +~04/2020 (no code) [facility] (03783) Lot # [id number] (no code) [facility] (44630) RESULTS no information (no code) [facility] (88470) No panel information on 2018-12-26 Exp date +~16 May 2020 (no code) [facility] (65924) Lot # [id number] (no code) [facility] (71542) Lot # [id number] (no code) [facility] (07096) RESULTS no information (no code) [facility] (76476) Nov (no code) [facility] [facility] 2019~+~Negative~ [facility] Negative~Negativ 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 (32846) Date of previous no information (N) [facility] lt biopsy [facility] (33682) Date of previous no information (N) [facility] PAP smear [facility] (59908) HCV RNA, 5.13 (H) [facility], 1928–1983 QUANTITATIVE [facility] REAL TIME PCR [facility] (60745) HCV RNA, 938269 (H) [facility], [facility]–1983 QUANTITATIVE [facility] REAL TIME PCR [facility] (80077) Last menstrual 07/26/18 (N) [facility], [facility] period start [facility] (47074) Microorganism no information (N) [facility], [facility]–1983 identified Cyto [facility] stain Nom [facility] (Cvx/Vag) (10338) Microscopic no information (N) [facility], [facility]–1983 observation Cyto [facility] stain Nom (Cvx) [facility] (70690) Platelet mean Not Detected (N) [facility], 1928–1983 volume (Bld) [facility] [Entitic vol] [facility] (48933) Specimen source Cervix (N) [facility] Cyto stain Nom [facility] (Cvx/Vag) [facility] (08317) Statement of no information (N) [facility], [facility]–1983 adequacy Cyto [facility] stain (Cvx/Vag) [facility] [Interp] (09249) Vital Signs Vital Sign Value Interpretation Reference Date Time Care Prov ider Facility (Normalized) (Normalized) Range BMI (Body Mass 28.36 kg/m2 (no code) 15 - 25 kg/m2 08-10-2018 [facility] Community Index) 11:40-[address] ([address]280) Body 97.6 [degF] (no code) 97.8 - 99.0 08-10-2018 [facility] Temperature [degF] 11:40-[address] ([address]48) Body 97.6 [degF] (no code) 97.8 - 99.0 07-18-2014 SKYLER NAPIER [facility] Temperature [degF] 14:23-[address] [place] [address] (11131) Body weight 69.08 kg (no code) kg 07-18-2014 SKYLER Be [facility] 14:230400 [address] [facility] (92264) Height 170.18 cm (no code) cm 08-10-2018 LYNN Lea unity 11:40-[address] (77943) Height 170.18 cm (no code) cm 07-18-2014 SKYLER Naranjo [facility] 14:230400 [address] [place] [address] (09199) Weight 82.15 kg (no code) kg 08-10-2018 LYNN Leau nity 11:40-[address] (12093) Interventions No Information Plan of Treatment Normalized Care Care Detail Care Activity Date Care Provider F acility Activity Patient Education no information no information LOCAL NO [facility] (09354) Patient referral no information no information LOCAL NO [facility] (35733) no information no information no information [address] ([address]) Goals Patient Goal Desired Goal no information no information Social History Normalized Code Original Code Date Value Tobacco smoking status Tobacco smoking status no information Ex-smoker (finding) [facility] no information no information 01-21-2015 Regular Use no information no information 01-21-2015 Y - PILLS no information no information 10-01-2019 No no information no information 10-01-2019 Denies no information no information 10-01-2019 Former Smoker no information no information 10-01-2019 Cigarettes Sex Assigned At Sex Assigned At 1995 - 05-17 Female Tobacco smoking status Tobacco smoking status no information Never smoked tobacco [facility] (finding) no information no information 12-19-2019 Never a Smoker Functional Status Status Assessment Result Care Provider Facility Functional status [place] Opioid-induced LOCAL NO [facility] (POSS[facility] (86426) Awake and alert Mental Status Status Assessment Result Care Provider Facility Cognitive function [place] Opioid-induced LOCAL NO [facility]ce [facility] Sedation Scale (POSS) [facility] (53113) Awake and alert Encounters Encounter Normalized Encounter Encounter Diagnosis Care Provi chilo Organization Date Type 10-19-2019 [facility] Chronic viral FREDDY HUIZAR ( no [facility] - hepatitis C phone) (no phone) 10-19-2019 - 10-19-2019 11-28-2019 Consultation for Chronic viral FREDDY HUIZAR (no [facility] - laboratory medicine hepatitis C phone) (no ph one) 11-28-2019 - 11-28-2019 01-29-2019 Consultation for Encounter for TAMARA SANCHEZ (no phone ) [facility] - laboratory medicine test, result ( no phone) 01-29-2019 unknown - 01-29-2019 12-19-2019 Emergency department no information (no phone) [facility] - patient visit Hospital (no phone) 12-19-2019 09-23-2018 Emergency department no information no name (no tahmina ne) no organization name - patient visit (no phone) 09-23-2018 09-22-2018 Emergency department no information no name (no tahmina ne) no organization name - patient visit (no phone) 09-22-2018 08-20-2018 Emergency department no information no name (no tahmina ne) no organization name - patient visit (no phone) 08-20-2018 10-01-2019 Evaluation and no information (no phone) [facility] - management of Hospital (no phone) 10-04-2019 inpatient 10-01-2019 Evaluation and no information no name (no phone) n o organization name - management of (no phone) 10-04-2019 inpatient 11-28-2019 Patient encounter no information (no phone) [facility] (no phone) 10-19-2019 Patient encounter no information no name (no phone) no organization name procedure (no phone) 10-01-2019 Patient encounter no information no name (no phone) no organization name - procedure (no phone) 10-04-2019 05-17-2019 Patient encounter no information no name (no phone) no organization name procedure (no phone) 05-17-2019 Patient encounter no information no name (no phone) no organization name procedure (no phone) 01-29-2019 Patient encounter no information no name (no phone) no organization name procedure (no phone) 01-10-2019 Patient encounter no information (no phone) [facility] (no phone) 12-26-2018 Patient encounter no information no name (no phone) no organization name procedure (no phone) 12-26-2018 Patient encounter no information no name (no phone) no organization name procedure (no phone) 09-23-2018 Patient encounter no information no name (no phone) no organization name - procedure (no phone) 09-23-2018 09-22-2018 Patient encounter no information no name (no phone) no organization name - procedure (no phone) 09-22-2018 08-20-2018 Patient encounter no information no name (no phone) no organization name - procedure (no phone) 08-20-2018 08-10-2018 Patient encounter no information no name (no phone) no organization name procedure (no phone) 12-06-2019 Telemedicine Chronic viral FREDDY HUIZAR (no [facility] - consultation with hepatitis C phone) (no phon e) 12-06-2019 patient - 12-06-2019 11-08-2019 Telephone encounter Chronic viral FREDDY HUIZAR (no [facility] - hepatitis C phone) (no phone) 11-08-2019 - 11-08-2019 10-18-2019 Telephone encounter Chronic viral LYNN MCLAIN (no [facility] - hepatitis C phone) (no phone) 10-18-2019 - 10-18-2019 Medical Equipment The data below is from unstructured sourcesNo Medical Equipment Information availableNo Medical Equipment Information availableNo Medical Equipment Information available Payers Normalized Payer Value Unknown no information ([id number]) Evaluation note Note Type Note Facility Evaluation No Assessments Information Available A sc[facility] note [facility] (30768) History general Narrative - Reported Note Type Note Facility History general Narrative - Reported Type Medical Hep C w/o coma, chronic History Surgical No Surgical history informa tion History [facility] ([id number]) Summary Purpose eClinicalWorks SubmissioneClinicalWorks SubmissioneClinicalWorks Submission Advance Directives Directive Response Recor ded Date/Time Advance Directives No 1:10pm Resuscitation Status Full Code 01/21/15 1:10pm Advance Directive Response Recorded Date/Time Advance Directives No [place] 2018 7:13pm Health Care Power of Change House Attendant No October 01, 2019 7:13pm Organ Donor No October 01, 2019 7:13pm Resuscitation Status Full Code October 01, 2019 7:13pm Advance Directive Response Recorded Date/Time Advance Directives No [facility] 2019 3:10pm Health Care Power of Change House Attendant No October 01, 2019 7:13pm Organ Donor No October 01, 2019 7:13pm Resuscitation Status Full Code December 19, 2019 3:10pm Discharge Instructions No hospital discharge instructions. Additional Instructions Patient Instructions Physician Instructions New, Converted or Re-Newed RX: Transmitted to Pharmacy Additional Follow Up: Yes (2 weeks with Minerva; 6 week post exam) Activity: Activity as Tolerated Driving Instructions: You May Drive NO SMOKING: NO SMOKING Nothing Inside Vagina: No Douching, No [place], No Tampons Discharge Diet: No Restrictions Symptoms to Report to : Swelling Increased, Bleeding Excessive, Fever Over 101 Degrees F, Vaginal Bleeding Increase, Cramps in Feet or Legs, Vaginal Discharge Foul Chief Complaint and Reason for Visit Chief Complaint INDUCTION Chief Complaint General Problems/Husam n Reason for Visit [id number] Additional Source Comments This clinical document has been generated using [employer] software that has been certified by the Office of the National Coordinator for Health Information Technology (ONC 15.99.04.3023.Diam.31.00.0.097625) and the National Committee for Senior Sql Developer (NCQA, as an eMeasure certified technology). FOR RECORDS PERTAINING TO PATIENTS WHO ARE OR HAVE BEEN ENROLLED IN A CHEMICAL D EPENDENCY/SUBSTANCE ABUSE PROGRAM, SOME INFORMATION MAY BE OMITTED. This clinica l summary was aggregated from multiple sources. Caution should be exercised in using it in the provision of clinical care. This summary normalizes information from multiple sources, and as a consequence, information in this document may ma terially change the coding, format and clinical context of patient data. In duane tion, data may be omitted in some cases. CLINICAL DECISIONS SHOULD BE BASED ON T HE PRIMARY CLINICAL RECORDS. [employer] [place]. provides no warranty or guara ntee of the accuracy or completeness of information in this document.The followi ng information is based on time limited clinical information UNRECOGNIZED CONTENT PROVIDED BELOW FOR UNRECOGNIZED SECTION REASON FOR VISIT Establish Care/STD check- Tia, [id number] return callEM R-Marcus UNRECOGNIZED CONTENT PROVIDED BELOW FOR UNRECOGNIZED SECTION MEDICAL (GENERAL) HISTORY Type Description Date Surgical History No Surgical history information Type Description Date Surgical History No know Surgical history
--- OUTSIDE RECORDS SUMMARY | 2019-12-24 08:32 | XMS REPORT ---
Author Author Jeferson Naranjo Organization [facility] Address [address] [place] [address] Care Team Providers Care Oil Well Cable Tool Operator Name Role Phone SKYLER Naranjo Unavailable PROBLEMS Type Condition ICD9-CM Code [id number] Code Onset Dates Condition S tatus SNOMED Code Problem Hep C w/o coma, chronic B18.2 Active [id number] ALLERGIES No Information ENCOUNTERS Encounter Location Date Diagnosis [facility] [address] [id number] [place] [id number] Jan, Encounter for test Z32.00 [facility] [address] [id number] [place] [phone] Dec, STD exposure Z20.2 and Trich omonal infection A59.9 [facility] [address] [facility] [id number] [address] [place] [phone] Dec, Hep C w/o coma, chronic B18. 2 [facility] [address] [facility] [id number] [address] [place] [phone] Dec, Unprotected sexual intercour se Z72.51 and Screen for STD (sexually transmitted disease) Z11.3 [facility] [address] [facility] [id number] [address] [place] [phone] Dec, Hep C w/o coma, chronic B18. 2 [facility] [address] [facility] [id number] [address] [place] [phone] Dec, [facility] [address] [facility] [id number] [address] [place] [phone] Oct, [facility] [id number] [place] [phone] Oct, [facility] [address] [facility] [id number] [address] [place] [phone] Oct, [facility] [id number] [place] [phone] Aug, [facility] [address] [facility] [id number] [address] [place] [phone] Jul, Hep C w/o coma, chronic B18. 2 [facility] [id number] [address] [place] [phone] Jul, Cervicitis N72 ; Hepatitis C antibody positive in blood R76.8 ; Low grade squamous intraepithelial lesion (LGSIL) on Papanicolaou smear of cervix R87.612 and IVDU (intravenous drug user) F19.90 [place] [address] [place] [id number] [address] [place] [phone] Sep, [place] [address] [id number] [address] [place] [phone] Aug, Screen for STD (sexually tra nsmitted disease) Z11.3 ; Unspecified abdominal pain R10.9 ; Vaginal discharge N89.8 ; Lower abdominal tenderness R10.819 ; Pap smear for cervical cancer screening Z12.4 ; Urinary tract infection, site not specified N39.0 and Unprotected sexual intercourse Z72.51 [facility] [address] [place], [place] [id number] 57 08 Jun, 2015 Candidiasis, vagina 112.1 [place] [id number] [place] [phone] Jan, [facility] [id number] [place] [phone] Jan, [facility] [address] [id number] [address] [place] [phone] Jul, [facility] [id number] [place] [phone] Jul, [facility] [id number] [place] [phone] Jul, [facility] [address] [id number] [address] [place] [address], [place] [address] Jul, [facility] [address] [id number] [address] [place] [address], [place] [address] Jul, [facility] [address] [id number] [address] [place] [address], [place] [address] Jul, [facility] [address] [id number] [address] [place] [address], [place] [address] Jul, [facility] [address] [id number] [address] [place] [address], [place] [address] Dec, [facility] [address] [id number] [address] [place] [address], [place] [address] Dec, [facility] [address] [id number] [address] [place] [address], [place] [address] Dec, [facility] [address] [id number] [address] [place] [address], [place] [address] Dec, [facility] [address] [id number] [address] [place] [address], [place] [address] 18 Dec, 2013 [facility] [address] [id number] [address] [place] [address], [place] [address] 18 Dec, 2013 [facility] [address] [id number] [address] [place] [address], [place] [address] 15 Dec, 2013 [facility] [address] [id number] [address] [place] [address], [place] [address] 14 Dec, 2013 [facility] [address] [id number] [address] [place] [address], [place] [address] 12 Dec, 2013 [facility] [address] [id number] [address] [place] [address], [place] [address] 12 Dec, 2013 [facility] [address] [id number] [address] [place] [address], [place] [address] 15 Sep, 2010 [facility] [address] [id number] [address] [place] [address] Aug, [facility] [address] [facility] [id number] [address] [place] [phone] Aug, [facility] [address] [facility] [id number] [address] [place] [phone] Jul, IMMUNIZATIONS No Known Immunizations SOCIAL HISTORY Never Assessed REASON FOR VISIT PLAN OF CARE VITAL SIGNS MEDICATIONS Unknown Medications RESULTS No Results PROCEDURES No Known procedures INSTRUCTIONS MEDICATIONS ADMINISTERED No Known Medications MEDICAL (GENERAL) HISTORY Type Description Date Surgical History No know Surgical history
--- OUTSIDE RECORDS SUMMARY | 2019-12-24 08:32 | XMS REPORT ---
Author Author Jeferson Islas Doctor Organization [facility] Address Unknown Phone Unavailable Care Team Providers Care Paste Up Worker Name Role Phone Migration, Doctor Unavailable Unavailable PROBLEMS Type Condition ICD9-CM Code [id number] Code Onset Dates Condition S tatus SNOMED Code Problem Hep C w/o coma, chronic B18.2 Active [id number] ALLERGIES No Information ENCOUNTERS Encounter Location Date Diagnosis [facility] [address] [facility] [id number] [address] [place] [phone] Jan, [facility] [address] [facility] [id number] [address] [place] [address] Dec, Hep C w/o coma, chronic B18. 2 [facility] [address] [facility] [id number] [address] [place] [address] Dec, [facility] [address] [facility] [id number] [address] [place] [address] Oct, [facility] [address] [facility] [id number] [address] [place] [address] Oct, [facility] [address] [facility] [id number] [address] [place] [address] Oct, [facility] [address] [facility] [id number] [address] [place] [address] Aug, [facility] [address] [facility] [id number] [address] [place] [address] Jul, Hep C w/o coma, chronic B18. 2 [facility] [address] [facility] [id number] [address] [place] [address] Jul, Cervicitis N72 ; Hepatitis C antibody positive in blood R76.8 ; Low grade squamous intraepithelial lesion (LGSIL) on Papanicolaou smear of cervix R87.612 and IVDU (intravenous drug user) F19.90 [facility] [address] [id number] [address] [place] [address] Sep, [facility] [address] [facility] [id number] [address] [place] [address] Aug, Screen for STD (sexually tra nsmitted disease) Z11.3 ; Unspecified abdominal pain R10.9 ; Vaginal discharge N89.8 ; Lower abdominal tenderness R10.819 ; Pap smear for cervical cancer screening Z12.4 ; Urinary tract infection, site not specified N39.0 and Unprotected sexual intercourse Z72.51 [facility] [address] [place], [place] [id number] 57 08 Jun, 2015 Candidiasis, vagina 112.1 [facility] [address] [facility] [id number] [address] [place] [address] 14 Jan, 2015 [facility] [address] [facility] [id number] [address] [place] [address] Jan, [facility] [address] [facility] [id number] [address] [place] [address] Jul, [facility] [address] [facility] [id number] [address] [place] [address] Jul, [facility] [address] [facility] [id number] [address] [place] [address] Jul, [facility] [address] [facility] [id number] [address] [place] [address] Jul, [facility] [address] [facility] [id number] [address] [place] [address] Jul, [facility] [address] [facility] [id number] [address] [place] [address] Jul, [facility] [address] [facility] [id number] [address] [place] [address] Jul, [facility] [address] [facility] [id number] [address] [place] [address] Dec, [facility] [address] [id number] [address] [place] [address] 21 Dec, 2013 [facility] [address] [id number] [address] [place] [address] 21 Dec, 2013 [facility] [address] [id number] [address] [place] [address] 21 Dec, 2013 [facility] [address] [id number] [address] [place] [phone] 18 Dec, 2013 [facility] [address] [id number] [address] [place] [phone] 18 Dec, 2013 [facility] [address] [id number] [address] [place] [phone] 15 Dec, 2013 [facility] [address] [id number] [address] [place] [phone] 14 Dec, 2013 [facility] [address] [id number] [address] [place] [address] Dec, [facility] [address] [id number] [address] [place] [address] 12 Dec, 2013 [facility] [address] [id number] [address] [place] [address] Sep, [facility] [address] [id number] [address] [place] [address] Aug, [facility] [address] [id number] [address] [place] [address] Aug, [facility] [address] [id number] [address] [place] [phone] Jul, IMMUNIZATIONS No Known Immunizations SOCIAL HISTORY Never Assessed REASON FOR VISIT EMR-[facility] PLAN OF CARE VITAL SIGNS MEDICATIONS Unknown Medications RESULTS No Results PROCEDURES No Known procedures INSTRUCTIONS MEDICATIONS ADMINISTERED No Known Medications MEDICAL (GENERAL) HISTORY Type Description Date Surgical History No Surgical history information
--- OUTSIDE RECORDS SUMMARY | 2019-12-24 08:32 | XMS REPORT ---
Author Author Jeferson MCLAIN Organization [facility] Address [address] [place] [address] Care Team Providers Care Sheep Rancher Name Role Phone LYNN MCLAIN Unavailable PROBLEMS Type Condition ICD9-CM Code [id number] Code Onset Dates Condition S tatus SNOMED Code Problem Hep C w/o coma, chronic B18.2 Active [id number] ALLERGIES No Information ENCOUNTERS Encounter Location Date Diagnosis [facility] [address] [facility] [id number] [address] [place] [address] Dec, STD exposure Z20.2 and Trich omonal infection A59.9 [facility] [address] [place] [id number] [address] [place] [address] Dec, Hep C w/o coma, chronic B18. 2 [facility] [address] [place] [id number] [address] [place] [address] Dec, Unprotected sexual intercour se Z72.51 and Screen for STD (sexually transmitted disease) Z11.3 [facility] [address] [place] [id number] [address] [place] [address] Dec, Hep C w/o coma, chronic B18. 2 [facility] [address] [facility] [id number] [address] [place] [address] Dec, [facility] [address] [facility] [id number] [address] [place] [address] Oct, [facility] [address] [place] [id number] [address] [place] [address] Oct, [facility] [address] [place] [id number] [address] [place] [address] Oct, [facility] [address] [facility] [id number] [address] [place] [address] Aug, [facility] [address] [facility] [id number] [address] [place] [address] Jul, Hep C w/o coma, chronic B18. 2 [facility] [address] [facility] [id number] [address] [place] [address] Jul, Cervicitis N72 ; Hepatitis C antibody positive in blood R76.8 ; Low grade squamous intraepithelial lesion (LGSIL) on Papanicolaou smear of cervix R87.612 and IVDU (intravenous drug user) F19.90 [facility] [address] [place] [id number] [address] [place] [address] Sep, [facility] [address] [facility] [id number] [address] [place] [address] Aug, Screen for STD (sexually tra nsmitted disease) Z11.3 ; Unspecified abdominal pain R10.9 ; Vaginal discharge N89.8 ; Lower abdominal tenderness R10.819 ; Pap smear for cervical cancer screening Z12.4 ; Urinary tract infection, site not specified N39.0 and Unprotected sexual intercourse Z72.51 [facility] [address] [place], [place] [id number] 57 08 Jun, 2015 Candidiasis, vagina 112.1 [facility] [address] [facility] [id number] [address] [place] [address] 14 Jan, 2015 [facility] [address] [facility] [id number] [address] [place] [address] Jan, [facility] [address] [facility] [id number] [address] [place] [address] Jul, [facility] [address] [place] [id number] [address] [place] [address] Jul, [facility] [address] [facility] [id number] [address] [place] [address] Jul, [facility] [address] [place] [id number] [address] [place] [address] Jul, [facility] [address] [id number] [facility] [place] [address] 05 Jul, 2014 [facility] [address] [id number] [address] [place] [address], [place] [address] Jul, [facility] [address] [id number] [address] [place] [address], [place] [address] Jul, [facility] [address] [id number] [address] [place] [address], [place] [address] Dec, [facility] [address] [id number] [address] [place] [address], [place] [address] Dec, [facility] [address] [id number] [address] [place] [address], [place] [address] Dec, [facility] [address] [id number] [address] [place] [address], [place] [address] Dec, [facility] [address] [id number] [address] [place] [address], [place] [address] 18 Dec, 2013 [facility] [address] [id number] [address] [place] [address], [place] [address] 18 Dec, 2013 [facility] [address] [id number] [address] [place] [address], [place] [address] 15 Dec, 2013 [facility] [address] [id number] [address] [place] [address], [place] [address] 14 Dec, 2013 [facility] [address] [id number] [address] [place] [address], [place] [address] Dec, [facility] [address] [id number] [address] [place] [address], [place] [address] Dec, [facility] [address] [id number] [address] [place] [address], [place] [address] 15 Sep, 2010 [facility] [address] [id number] [address] [place] [address], [place] [address] 18 Aug, 2010 [facility] [address] [id number] [address] [place] [address] Aug, [facility] [address] [facility] [id number] [address] [place] [address] Jul, IMMUNIZATIONS No Known Immunizations SOCIAL HISTORY Never Assessed REASON FOR VISIT Requests return call PLAN OF CARE VITAL SIGNS MEDICATIONS Unknown Medications RESULTS No Results PROCEDURES No Known procedures INSTRUCTIONS MEDICATIONS ADMINISTERED No Known Medications MEDICAL (GENERAL) HISTORY Type Description Date Surgical History No know Surgical history
--- OUTSIDE RECORDS SUMMARY | 2019-12-24 08:32 | XMS REPORT ---
Author Author Jeferson Naranjo Organization [facility] Address [address] [place] [address] Care Team Providers Care Box Sealing Inspector Name Role Phone SKYLER Naranjo Unavailable PROBLEMS Type Condition ICD9-CM Code [id number] Code Onset Dates Condition S tatus SNOMED Code Problem Hep C w/o coma, chronic B18.2 Active [id number] ALLERGIES No Information ENCOUNTERS Encounter Location Date Diagnosis [facility] [address] [place] [id number] [address] [place] [address] Jan, Encounter for test Z32.00 [facility] [address] [place] [id number] [address] [place] [address] Dec, STD exposure Z20.2 and Trich omonal infection A59.9 [facility] [address] [facility] [id number] [address] [place] [address] Dec, Hep C w/o coma, chronic B18. 2 [facility] [address] [facility] [id number] [address] [place] [address] Dec, Unprotected sexual intercour se Z72.51 and Screen for STD (sexually transmitted disease) Z11.3 [facility] [address] [facility] [id number] [address] [place] [address] Dec, Hep C w/o coma, chronic B18. 2 [facility] [address] [facility] [id number] [address] [place] [address] Dec, [facility] [address] [facility] [id number] [address] [place] [address] Oct, [facility] [address] [place] [id number] [address] [place] [address] Oct, [facility] [address] [facility] [id number] [address] [place] [address] Oct, [facility] [address] [place] [id number] [place] [address] Aug, [facility] [address] [facility] [id number] [address] [place] [address] Jul, Hep C w/o coma, chronic B18. 2 [facility] [address] [place] [id number] [address] [place] [address] Jul, Cervicitis N72 ; Hepatitis C antibody positive in blood R76.8 ; Low grade squamous intraepithelial lesion (LGSIL) on Papanicolaou smear of cervix R87.612 and IVDU (intravenous drug user) F19.90 [place] [address] [place] [id number] [address] [place] [address] Sep, [place] [address] [place] [id number] [address] [place] [address] Aug, Screen for STD (sexually tra nsmitted disease) Z11.3 ; Unspecified abdominal pain R10.9 ; Vaginal discharge N89.8 ; Lower abdominal tenderness R10.819 ; Pap smear for cervical cancer screening Z12.4 ; Urinary tract infection, site not specified N39.0 and Unprotected sexual intercourse Z72.51 [facility] [address] [place], [place] [id number] 57 08 Jun, 2015 Candidiasis, vagina 112.1 [place] [address] [place] [id number] [address] [place] [address] Jan, [facility] [address] [place] [id number] [address] [place] [phone] Jan, [facility] [address] [place] [id number] [address] [place] [phone] Jul, [facility] [address] [place] [id number] [address] [place] [address] Jul, [facility] [id number] [place] [address] Jul, [facility] [address] [id number] [address] [place] [address], [place] [address] Jul, [facility] [address] [id number] [address] [place] [address], [place] [address] Jul, [facility] [address] [id number] [address] [place] [address], [place] [address] Jul, [facility] [address] [id number] [address] [place] [address], [place] [address] Jul, [facility] [address] [id number] [address] [place] [address], [place] [address] Dec, [facility] [address] [id number] [address] [place] [address], [place] [address] Dec, [facility] [address] [id number] [address] [place] [address], [place] [address] Dec, [facility] [address] [id number] [address] [place] [address], [place] [address] Dec, [facility] [address] [id number] [address] [place] [address], [place] [address] 18 Dec, 2013 [facility] [address] [id number] [address] [place] [address], [place] [address] 18 Dec, 2013 [facility] [address] [id number] [address] [place] [address], [place] [address] 15 Dec, 2013 [facility] [address] [id number] [address] [place] [address], [place] [address] 14 Dec, 2013 [facility] [address] [id number] [address] [place] [address], [place] [address] 12 Dec, 2013 [facility] [address] [id number] [address] [place] [address], [place] [address] 12 Dec, 2013 [facility] [address] [id number] [address] [place] [address], [place] [address] 15 Sep, 2010 [facility] [address] [id number] [address] [address] Aug, [facility] [address] [facility] [id number] [address] [place] [address] Aug, [facility] [address] [facility] [id number] [address] [place] [address] Jul, IMMUNIZATIONS No Known Immunizations SOCIAL HISTORY Never Assessed REASON FOR VISIT PLAN OF CARE VITAL SIGNS MEDICATIONS Unknown Medications RESULTS No Results PROCEDURES No Known procedures INSTRUCTIONS MEDICATIONS ADMINISTERED No Known Medications MEDICAL (GENERAL) HISTORY Type Description Date Surgical History No know Surgical history
--- OUTSIDE RECORDS SUMMARY | 2019-12-24 08:32 | XMS REPORT ---
Author Author Jeferson MAYORGA Organization [facility] Address [address] [place] [address] Care Team Providers Care Control And Recovery Combat Rescue Name Role Phone ARVINDeb JAQUELINE Unavailable PROBLEMS Type Condition ICD9-CM Code [id number] Code Onset Dates Condition S tatus SNOMED Code Problem Hep C w/o coma, chronic B18.2 Active [id number] ALLERGIES No Information ENCOUNTERS Encounter Location Date Diagnosis [place] [address] [address] Nov, Hep C w/o coma, chronic B18.2 [place] [address] [address] Nov, Hep C w/o coma, chronic B18.2 [facility] [address] [address] Oct, Hep C w/o coma, chronic B18.2 [place] [address] [address] Oct, Hep C w/o coma, chronic B18.2 [facility] [address] [address] Oct, Hep C w/o coma, chronic B18.[address] [address] Jan, Encounter for test Z32.00 [facility] [address] [facility] [id number] [address] [place] [address] Dec, STD exposure Z20.2 and Trich omonal infection A59.9 [facility] [address] [address] Dec, Hep C w/o coma, chronic B18.2 [facility] [address] [address] Dec, Unprotected sexual intercourse Z72.51 an d Screen for STD (sexually transmitted disease) Z11.3 [facility] [address] [address] 07 Dec, 2018 Hep C w/o coma, chronic B18.2 [facility] [address] [address] Dec, [facility] [address] [address] Oct, [place] [address] [address] Oct, [place] [address] [address] Oct, [place] [address] [address] Aug, [facility] [address] [address] Jul, Hep C w/o coma, chronic B18.2 [place] [address] [address] Jul, Cervicitis N72 ; Hepatitis C antibody po sitive in blood R76.8 ; Low grade squamous intraepithelial lesion (LGSIL) on Papanicolaou smear of cervix R87.612 and IVDU (intravenous drug user) F19.90 [place] [address] [address] Sep, [place] [address] [address] Aug, Screen for STD (sexually transmitted dis ease) Z11.3 ; Unspecified abdominal pain R10.9 ; Vaginal discharge N89.8 ; Lower abdominal tenderness R10.819 ; Pap smear for cervical cancer screening Z12.4 ; Urinary tract infection, site not specified N39.0 and Unprotected sexual intercourse Z72.51 [facility] [address] [place] [id number] 57 08 Jun, 2015 Candidiasis, vagina 112.1 [facility] [address] [id number] [place] [address] 14 Jan, 2015 [facility] [address] [place] [id number] [place] [address] Jan, [facility] [address] [place] [address] [id number] [place] [address] Jul, [facility] [id number] [place] [address] Jul, [facility] [id number] [place] [address] Jul, [facility] [id number] [place] [address] Jul, [facility] [id number] [place] [address] Jul, [facility] [id number] [place] [address] Jul, [facility] [id number] [place] [address] Jul, [facility] [address] [id number] [place] [address] Dec, [facility] [id number] [place] [address] Dec, [facility] [id number] [place] [address] Dec, [facility] [id number] [place] [address] Dec, [facility] [id number] [place] [address] Dec[facility] [id number] [place] [address] Dec, [facility] [id number] [place] [address] 15 Dec, 2013 [facility] [address] [id number] [place] [address] 14 Dec, 2013 [facility] [id number] [place] [address] 12 Dec, 2013 [facility] [id number] [place] [address] Dec, [facility] [id number] [place] [address] Sep, [facility] [id number] [place] [address] Aug, [facility] [id number] [place] [address] Aug, [facility] [address] [id number] [place] [address] Jul, IMMUNIZATIONS No Known Immunizations SOCIAL HISTORY Never Assessed REASON FOR VISIT PLAN OF CARE VITAL SIGNS MEDICATIONS No Known Medications RESULTS No Results PROCEDURES No Known procedures INSTRUCTIONS MEDICATIONS ADMINISTERED No Known Medications MEDICAL (GENERAL) HISTORY Type Description Date Medical History Hep C w/o coma, chronic Surgical History No Surgical history information
--- OUTSIDE RECORDS SUMMARY | 2019-12-24 08:32 | XMS REPORT ---
Author Author Jeferson MCLAIN [facility] Address [address] [place] [address] Care Team Providers Care Supervisor Extrusion Name Role Phone LYNN MCLAIN Unavailable PROBLEMS Type Condition ICD9-CM Code [id number] Code Onset Dates Condition S tatus SNOMED Code Problem Hep C w/o coma, chronic B18.2 Active [id number] ALLERGIES No Information ENCOUNTERS Encounter Location Date Diagnosis [facility] [address] [id number] [address] [place] [address] Jul, Hep C w/o coma, chronic B18. 2 [facility] [address] [id number] [address] [place] [address] Jul, Cervicitis N72 ; Hepatitis C antibody positive in blood R76.8 ; Low grade squamous intraepithelial lesion (LGSIL) on Papanicolaou smear of cervix R87.612 and IVDU (intravenous drug user) F19.90 [facility] [address] [id number] [address] [place] [address] Sep, [facility] [address] [id number] [address] [place] [address] Aug, Screen for STD (sexually tra nsmitted disease) Z11.3 ; Unspecified abdominal pain R10.9 ; Vaginal discharge N89.8 ; Lower abdominal tenderness R10.819 ; Pap smear for cervical cancer screening Z12.4 ; Urinary tract infection, site not specified N39.0 and Unprotected sexual intercourse Z72.51 [facility] [address] [place], [place] [id number] 57 08 Jun, 2015 Candidiasis, vagina 112.1 [place] [address] [place] [id number] [address] [place] [address] Jan, [facility] [address] [id number] [address] [place] [address], [place] [address] Jan, [facility] [address] [id number] [address] [place] [address], [place] [address] Jul, [facility] [address] [id number] [address] [place] [address], [place] [address] Jul, [facility] [address] [id number] [address] [place] [address], [place] [address] Jul, [facility] [address] [id number] [address] [place] [address], [place] [address] Jul, [facility] [address] [id number] [address] [place] [address], [place] [address] Jul, [facility] [address] [id number] [address] [place] [address], [place] [address] Jul, [facility] [address] [id number] [address] [place] [address], [place] [address] Jul, [facility] [address] [id number] [address] [place] [address], [place] [address] Dec, [facility] [address] [id number] [address] [place] [address], [place] [address] 21 Dec, 2013 [facility] [address] [id number] [address] [place] [address], [place] [address] Dec, [facility] [address] [id number] [address] [place] [address], [place] [address] 21 Dec, 2013 [facility] [address] [id number] [address] [place] [address], [place] [address] 18 Dec, 2013 [facility] [address] [id number] [address] [place] [address], [place] [address] 18 Dec, 2013 [facility] [address] [id number] [address] [place] [address], [place] [address] 15 Dec, 2013 [facility] [address] [id number] [address] [place] [address], [place] [address] 14 Dec, 2013 [facility] [address] [facility] [id number] [address] [place] [address] Dec, [facility] [address] [facility] [id number] [address] [place] [address] Dec, [facility] [address] [facility] [id number] [address] [place] [address] Sep, [facility] [address] [facility] [id number] [address] [place] [address] Aug, [facility] [address] [facility] [id number] [address] [place] [address] Aug, [facility] [address] [facility] [id number] [address] [place] [address] Jul, IMMUNIZATIONS No Known Immunizations SOCIAL HISTORY Never Assessed REASON FOR VISIT PLAN OF CARE VITAL SIGNS MEDICATIONS Unknown Medications RESULTS No Results PROCEDURES No Known procedures INSTRUCTIONS MEDICATIONS ADMINISTERED No Known Medications MEDICAL (GENERAL) HISTORY Type Description Date Surgical History No Surgical history information
--- OUTSIDE RECORDS SUMMARY | 2019-12-24 08:32 | XMS REPORT ---
Author Author Jeferson Islas Doctor Organization [facility] Address Unknown Phone Unavailable Care Team Providers Care Digital Content Manager Name Role Phone Migration, Doctor Unavailable Unavailable PROBLEMS Type Condition ICD9-CM Code [id number] Code Onset Dates Condition S tatus SNOMED Code Problem Hep C w/o coma, chronic B18.2 Active [id number] ALLERGIES No Information ENCOUNTERS Encounter Location Date Diagnosis [facility] [address] [facility] [id number] [address] [place] [address] Jan, [facility] [address] [facility] [id number] [address] [place] [address] Dec, STD exposure Z20.2 and Trich omonal infection A59.9 [facility] [address] [facility] [id number] [address] [place] [address] Dec, Hep C w/o coma, chronic B18. 2 [facility] [address] [facility] [id number] [address] [place] [address] Dec, Unprotected sexual intercour se Z72.51 and Screen for STD (sexually transmitted disease) Z11.3 [facility] [address] [facility] [id number] [address] [place] [address] Dec, Hep C w/o coma, chronic B18. 2 [facility] [address] [facility] [id number] [address] [place] [address] Dec, [facility] [address] [facility] [id number] [address] [place] [address] Oct, [facility] [address] [facility] [id number] [address] [place] [address] Oct, [facility] [address] [facility] [id number] [address] [place] [address] Oct, [facility] [address] [facility] [id number] [address] [place] [address] Aug, [facility] [address] [facility] [id number] [address] [place] [address] Jul, Hep C w/o coma, chronic B18. 2 [facility] [address] [facility] [id number] [address] [place] [address] Jul, Cervicitis N72 ; Hepatitis C antibody positive in blood R76.8 ; Low grade squamous intraepithelial lesion (LGSIL) on Papanicolaou smear of cervix R87.612 and IVDU (intravenous drug user) F19.90 [facility] [address] [facility] [id number] [address] [place] [address] Sep, [facility] [address] [facility] [id number] [address] [place] [address] 06 Aug, 2015 Screen for STD (sexually tra nsmitted disease) Z11.3 ; Unspecified abdominal pain R10.9 ; Vaginal discharge N89.8 ; Lower abdominal tenderness R10.819 ; Pap smear for cervical cancer screening Z12.4 ; Urinary tract infection, site not specified N39.0 and Unprotected sexual intercourse Z72.51 [facility] [address] [place], [place] [id number] 57 08 Jun, 2015 Candidiasis, vagina 112.1 [facility] [address] [facility] [id number] [address] [place] [address] 14 Jan, 2015 [facility] [address] [facility] [id number] [address] [place] [address] Jan, [facility] [address] [facility] [id number] [address] [place] [address] Jul, [facility] [address] [facility] [id number] [address] [place] [address] Jul, [facility] [address] [facility] [id number] [address] [place] [address] Jul, [facility] [address] [facility] [id number] [address] [place] [address] Jul, [facility] [address] [id number] [facility] [place] [address] 05 Jul, 2014 [facility] [address] [id number] [address] [place] [address], [place] [address] Jul, [facility] [address] [id number] [address] [place] [address], [place] [address] Jul, [facility] [address] [id number] [address] [place] [address], [place] [address] Dec, [facility] [address] [id number] [address] [place] [address], [place] [address] Dec, [facility] [address] [id number] [address] [place] [address], [place] [address] Dec, [facility] [address] [id number] [address] [place] [address], [place] [address] Dec, [facility] [address] [id number] [address] [place] [address], [place] [address] Dec, [facility] [address] [id number] [address] [place] [address], [place] [address] 18 Dec, 2013 [facility] [address] [id number] [address] [place] [address], [place] [address] 15 Dec, 2013 [facility] [address] [id number] [address] [place] [address], [place] [address] 14 Dec, 2013 [facility] [address] [id number] [address] [place] [address], [place] [address] Dec, [facility] [address] [id number] [address] [place] [address], [place] [address] Dec, [facility] [address] [id number] [address] [place] [address], [place] [address] 15 Sep, 2010 [facility] [address] [id number] [address] [place] [address], [place] [address] 18 Aug, 2010 [facility] [address] [id number] [address] [place] [address] Aug, [facility] [address] [facility] [id number] [address] [address] Jul, IMMUNIZATIONS No Known Immunizations SOCIAL HISTORY Never Assessed REASON FOR VISIT EMR-[facility] PLAN OF CARE VITAL SIGNS MEDICATIONS Medication Instructions Dosage Frequency Start Date End Date Duration S tatus Diflucan 150 mg take 1 tablet by Oral route once every 3 days Jul, Active Flagyl 500 mg 1 tablet by Oral route 2 times per day f or 7 days Dec, Active RESULTS No Results PROCEDURES No Known procedures INSTRUCTIONS MEDICATIONS ADMINISTERED No Known Medications MEDICAL (GENERAL) HISTORY Type Description Date Surgical History No know Surgical history
--- OUTSIDE RECORDS SUMMARY | 2019-12-24 08:32 | XMS REPORT ---
Author Author Jeferson Naranjo Organization [facility] Address [address] [place] [address] Care Team Providers Care Sales Account Executive Name Role Phone SKYLER Naranjo Unavailable PROBLEMS Type Condition ICD9-CM Code [id number] Code Onset Dates Condition S tatus SNOMED Code Problem Hep C w/o coma, chronic B18.2 Active [id number] ALLERGIES No Information ENCOUNTERS Encounter Location Date Diagnosis [place] [address] [address] Nov, Hep C w/o coma, chronic B18.2 [facility] [address] [address] Nov, Hep C w/o coma, chronic B18.2 [facility] [address] [address] Oct, Hep C w/o coma, chronic B18.2 [place] [address] [address] Oct, Hep C w/o coma, chronic B18.2 [facility] [address] [address] Oct, Hep C w/o coma, chronic B18.[address] [address] Jan, Encounter for test Z32.00 [facility] [address] [facility] [id number] [address] [place] [address] Dec, STD exposure Z20.2 and Trich omonal infection A59.9 [facility] [address] [address] Dec, Hep C w/o coma, chronic B18.2 [facility] [address] [address] Dec, Unprotected sexual intercourse Z72.51 an d Screen for STD (sexually transmitted disease) Z11.3 [facility] [address] [address] 07 Dec, 2018 Hep C w/o coma, chronic B18.2 [facility] [address] [address] Dec, [facility] [address] [address] Oct, [place] [address] [address] Oct, [place] [address] [address] Oct, [place] [address] [address] Aug, [facility] [address] [address] Jul, Hep C w/o coma, chronic B18.2 [place] [address] [address] Jul, Cervicitis N72 ; Hepatitis C antibody po sitive in blood R76.8 ; Low grade squamous intraepithelial lesion (LGSIL) on Papanicolaou smear of cervix R87.612 and IVDU (intravenous drug user) F19.90 [place] [address] [address] Sep, [place] [address] [address] Aug, Screen for STD (sexually transmitted dis ease) Z11.3 ; Unspecified abdominal pain R10.9 ; Vaginal discharge N89.8 ; Lower abdominal tenderness R10.819 ; Pap smear for cervical cancer screening Z12.4 ; Urinary tract infection, site not specified N39.0 and Unprotected sexual intercourse Z72.51 [facility] [address] [place] [id number] 57 08 Jun, 2015 Candidiasis, vagina 112.1 [facility] [address] [id number] [place] [address] 14 Jan, 2015 [facility] [id number] [place] [address] Jan, [facility] [id number] [place] [address] Jul, [facility] [id number] [place] [address] Jul, [facility] [id number] [place] [address] Jul, [facility] [id number] [place] [address] Jul, [facility] [id number] [place] [address] Jul, [facility] [id number] [place] [address] Jul, [facility] [id number] [place] [address] Jul, [facility] [address] [id number] [place] [address] Dec, [facility] [id number] [place] [address] Dec, [facility] [id number] [place] [address] Dec, [facility] [id number] [place] [address] Dec, [facility] [id number] [place] [address] Dec, [facility] [id number] [place] [address] Dec, [facility] [id number] [place] [address] 15 Dec, 2013 [facility] [address] [id number] [place] [address] 14 Dec, 2013 [facility] [id number] [place] [address] 12 Dec, 2013 [facility] [address] [id number] [place] [address] Dec, [facility] [address] [id number] [place] [address] Sep, [facility] [id number] [place] [address] Aug, [facility] [id number] [place] [address] Aug, [facility] [address] [id number] [place] [address] Jul, IMMUNIZATIONS No Known Immunizations SOCIAL HISTORY Never Assessed REASON FOR VISIT PLAN OF CARE VITAL SIGNS MEDICATIONS No Known Medications RESULTS No Results PROCEDURES No Known procedures INSTRUCTIONS MEDICATIONS ADMINISTERED No Known Medications MEDICAL (GENERAL) HISTORY Type Description Date Medical History Hep C w/o coma, chronic Surgical History No Surgical history information
--- OUTSIDE RECORDS SUMMARY | 2019-12-24 08:32 | XMS REPORT ---
Author Author Jeferson Islas Doctor Organization [facility] Address Unknown Phone Unavailable Care Team Providers Care Hog Scraper Name Role Phone Migration, Doctor Unavailable Unavailable PROBLEMS Type Condition ICD9-CM Code [id number] Code Onset Dates Condition S tatus SNOMED Code Problem Hep C w/o coma, chronic B18.2 Active [id number] ALLERGIES No Information ENCOUNTERS Encounter Location Date Diagnosis [facility] [address] [facility] [id number] [address] [place] [address] Jan, Encounter for test Z32.00 [facility] [address] [facility] [id number] [address] [place] [address] Dec, STD exposure Z20.2 and Trich omonal infection A59.9 [facility] [address] [facility] [id number] [address] [place] [address] Dec, Hep C w/o coma, chronic B18. 2 [facility] [address] [facility] [id number] [address] [place] [address] Dec, Unprotected sexual intercour se Z72.51 and Screen for STD (sexually transmitted disease) Z11.3 [facility] [address] [facility] [id number] [address] [place] [address] Dec, Hep C w/o coma, chronic B18. 2 [facility] [address] [facility] [id number] [address] [place] [address] Dec, [facility] [address] [facility] [id number] [address] [place] [address] Oct, [facility] [address] [facility] [id number] [address] [place] [address] Oct, [facility] [address] [place] [id number] [address] [place] [address] Oct, [facility] [address] [facility] [id number] [address] [place] [address] Aug, [facility] [address] [facility] [id number] [address] [place] [address] Jul, Hep C w/o coma, chronic B18. 2 [facility] [address] [facility] [id number] [address] [place] [address] Jul, Cervicitis N72 ; Hepatitis C antibody positive in blood R76.8 ; Low grade squamous intraepithelial lesion (LGSIL) on Papanicolaou smear of cervix R87.612 and IVDU (intravenous drug user) F19.90 [facility] [address] [facility] [id number] [address] [place] [address] Sep, [facility] [address] [facility] [id number] [address] [place] [address] Aug, Screen for STD (sexually tra nsmitted disease) Z11.3 ; Unspecified abdominal pain R10.9 ; Vaginal discharge N89.8 ; Lower abdominal tenderness R10.819 ; Pap smear for cervical cancer screening Z12.4 ; Urinary tract infection, site not specified N39.0 and Unprotected sexual intercourse Z72.51 [facility] [address] [place], [place] [id number] 57 08 Jun, 2015 Candidiasis, vagina 112.1 [facility] [address] [facility] [id number] [address] [place] [address] Jan, [facility] [address] [facility] [id number] [address] [place] [address] Jan, [facility] [address] [facility] [id number] [address] [place] [address] Jul, [facility] [address] [facility] [id number] [address] [place] [address] Jul, [facility] [address] [facility] [id number] [address] [place] [address] Jul, [facility] [address] [facility] [id number] [address] [place] [address] 08 Jul, 2014 [facility] [address] [id number] [address] [place] [address], [place] [address] 05 Jul, 2014 [facility] [address] [id number] [address] [place] [address], [place] [address] Jul, [facility] [address] [id number] [address] [place] [address], [place] [address] Jul, [facility] [address] [id number] [address] [place] [address], [place] [address] Dec, [facility] [address] [id number] [address] [place] [address], [place] [id number] Dec, [facility] [address] [id number] [address] [place] [address], [place] [address] Dec, [facility] [address] [id number] [address] [place] [address], [place] [address] Dec, [facility] [address] [id number] [address] [place] [address], [place] [address] Dec, [facility] [address] [id number] [address] [place] [address], [place] [id number] 18 Dec, 2013 [facility] [address] [id number] [address] [place] [address], [place] [id number] 15 Dec, 2013 [facility] [address] [id number] [address] [place] [address], [place] [id number] 14 Dec, 2013 [facility] [address] [id number] [address] [place] [address], [place] [id number] Dec, [facility] [address] [id number] [address] [place] [address], [place] [address] Dec, [facility] [address] [id number] [address] [place] [address], [place] [id number] 15 Sep, 2010 [facility] [address] [id number] [address] [place] [address], [place] [address] 18 Aug, 2010 [facility] [address] [facility] [id number] [address] [address] Aug, [facility] [address] [facility] [id number] [address] [place] [address] Jul, IMMUNIZATIONS No Known Immunizations SOCIAL HISTORY Never Assessed REASON FOR VISIT EMR-[facility] PLAN OF CARE VITAL SIGNS MEDICATIONS Unknown Medications RESULTS No Results PROCEDURES No Known procedures INSTRUCTIONS MEDICATIONS ADMINISTERED No Known Medications MEDICAL (GENERAL) HISTORY Type Description Date Surgical History No know Surgical history
--- OUTSIDE RECORDS SUMMARY | 2019-12-24 08:32 | XMS REPORT ---
Author Author Jeferson MCLAIN [facility] Address [address] [place] [address] Care Team Providers Care Flow Floor Attendant Name Role Phone LYNN MCLAIN Unavailable PROBLEMS Type Condition ICD9-CM Code NLV87-NO Code Onset Dates Condition S tatus SNOMED Code Problem Hep C w/o coma, chronic B18.2 Active [id number] ALLERGIES No Known Allergies ENCOUNTERS Encounter Location Date Diagnosis [facility] [address] [id number] [address] [place] [address] Jul, Hep C w/o coma, chronic B18. 2 [facility] [address] [id number] [address] [place] [address] Jul, Cervicitis N72 ; Hepatitis C antibody positive in blood R76.8 ; Low grade squamous intraepithelial lesion (LGSIL) on Papanicolaou smear of cervix R87.612 and IVDU (intravenous drug user) F19.90 [facility] [address] [id number] [address] [place] [address] Sep, [facility] [address] [id number] [address] [place] [address] Aug, Screen for STD (sexually tra nsmitted disease) Z11.3 ; Unspecified abdominal pain R10.9 ; Vaginal discharge N89.8 ; Lower abdominal tenderness R10.819 ; Pap smear for cervical cancer screening Z12.4 ; Urinary tract infection, site not specified N39.0 and Unprotected sexual intercourse Z72.51 [facility] [address] [place], [place] [id number] 57 08 Jun, 2015 Candidiasis, vagina 112.1 [place] [id number] [id number] [address] [place] [address] Jan, [facility] [address] [id number] [address] [place] [address], [place] [address] Jan, [facility] [address] [id number] [address] [place] [address], [place] [address] Jul, [facility] [address] [id number] [address] [place] [address], [place] [address] Jul, [facility] [address] [id number] [address] [place] [address], [place] [address] Jul, [facility] [address] [id number] [address] [place] [address], [place] [address] Jul, [facility] [address] [id number] [address] [place] [address], [place] [address] Jul, [facility] [address] [id number] [address] [place] [address], [place] [address] Jul, [facility] [address] [id number] [address] [place] [address], [place] [address] Jul, [facility] [address] [id number] [address] [place] [address], [place] [address] Dec, [facility] [address] [id number] [address] [place] [address], [place] [address] Dec, [facility] [address] [id number] [address] [place] [address], [place] [address] Dec, [facility] [address] [id number] [address] [place] [address], [place] [address] 21 Dec, 2013 [facility] [address] [id number] [address] [place] [address], [place] [address] 18 Dec, 2013 [facility] [address] [id number] [address] [place] [address], [place] [address] 18 Dec, 2013 [facility] [address] [id number] [address] [place] [address], [place] [address] 15 Dec, 2013 [facility] [address] [id number] [address] [place] [address], [place] [address] 14 Dec, 2013 [facility] [address] [facility] [id number] [address] [place] [phone] 12 Dec, 2013 [facility] [address] [facility] [id number] [address] [place] [address] 12 Dec, 2013 [facility] [address] [facility] [id number] [address] [place] [phone] Sep, [facility] [address] [facility] [id number] [address] [place] [phone] Aug, [facility] [address] [facility] [id number] [address] [place] [phone] Aug, [facility] [address] [facility] [id number] [address] [place] [phone] Jul, IMMUNIZATIONS No Known Immunizations SOCIAL HISTORY Never Assessed REASON FOR VISIT Establish Care/STD check- GAIL Weber PLAN OF CARE Activity Details Follow Up prn Reason: Pending Test GC/CHLAM URINE (STATE) Pending Test HIV (STATE) Pending Test PAP AND HPV Pending Test HEP C RNA PCR QUANT VITAL SIGNS Height 67 in 2018-08-10 Weight 181.1 lbs 2018-08-10 Temperature 97.6 degrees Fahrenheit 2018-08-10 Heart Rate 74 bpm 2018-08-10 Respiratory Rate 18 2018-08-10 BMI 28.36 kg/m2 2018-08-10 Blood pressure systolic 108 mmHg 2018-08-10 Blood pressure diastolic 62 mmHg 2018-08-10 MEDICATIONS Medication Instructions Dosage Frequency Start Date End Date Duration S tatus Metronidazole 500 mg Orally once 4 tablet Jul,Jul, 2 018 1 dose Active RESULTS Name Result Date Reference Range TRICHOMONAS (IN HOUSE) 2018-08-10 TRICHOMONAS POSITIVE Control + Lot # [id number] Exp date 05/2019 URINE DRUG SCREEN (IN HOUSE) 2018-08-10 Lot # [id number] Exp date 06/2019 Control + COCAINE NEG AMPH NEG MTD NEG THC NEG OPIATE NEG BENZO POSITIVE PCP NEG BAR NEG OXY NEG MAMP NEG BUP NEG MDMA NEG TCA BACTERIAL VAGINOSIS (IN HOUSE) 2018-08-10 RESULTS NEGATIVE Control + Lot # [id number] Exp date 02/2019 PROCEDURES Procedure Date Ordered Result Body Site No Charge Aug 10, 2018 TRICHOMONAS ASSAY W/OPTIC Aug 10, 2018 VENIPUNCT, ROUTINE* Aug 10, 2018 SPECIMEN HANDLING Aug 10, 2018 Bacterial Vaginosis In House Aug 10, 2018 HEPATITIS C, RNA, QUANT Aug 10, 2018 INSTRUCTIONS MEDICATIONS ADMINISTERED No Known Medications MEDICAL (GENERAL) HISTORY Type Description Date Surgical History No Surgical history information
--- OUTSIDE RECORDS SUMMARY | 2019-12-24 08:32 | XMS REPORT ---
Author Author Jeferson Islas Doctor Organization [facility] Address Unknown Phone Unavailable Care Team Providers Care Service Line Coordinator Name Role Phone Migration, Doctor Unavailable Unavailable PROBLEMS Type Condition ICD9-CM Code [id number] Code Onset Dates Condition S tatus SNOMED Code Problem Hep C w/o coma, chronic B18.2 Active [id number] ALLERGIES No Information ENCOUNTERS Encounter Location Date Diagnosis [facility] [address] [facility] [id number] [address] [place] [phone] Jan, [facility] [address] [facility] [id number] [address] [place] [address] Dec, Hep C w/o coma, chronic B18. 2 [facility] [address] [facility] [id number] [address] [place] [address] Dec, [facility] [address] [facility] [id number] [address] [place] [phone] Oct, [facility] [address] [facility] [id number] [address] [place] [address] Oct, [facility] [address] [facility] [id number] [address] [place] [phone] Oct, [facility] [address] [facility] [id number] [address] [place] [address] Aug, [facility] [address] [facility] [id number] [address] [place] [phone] Jul, Hep C w/o coma, chronic B18. 2 [facility] [address] [facility] [id number] [address] [place] [address] Jul, Cervicitis N72 ; Hepatitis C antibody positive in blood R76.8 ; Low grade squamous intraepithelial lesion (LGSIL) on Papanicolaou smear of cervix R87.612 and IVDU (intravenous drug user) F19.90 [facility] [address] [id number] [address] [place] [address] Sep, [facility] [address] [facility] [id number] [address] [place] [phone] Aug, Screen for STD (sexually tra nsmitted disease) Z11.3 ; Unspecified abdominal pain R10.9 ; Vaginal discharge N89.8 ; Lower abdominal tenderness R10.819 ; Pap smear for cervical cancer screening Z12.4 ; Urinary tract infection, site not specified N39.0 and Unprotected sexual intercourse Z72.51 [facility] [address] [place], [place] [id number] 57 08 Jun, 2015 Candidiasis, vagina 112.1 [facility] [address] [facility] [id number] [address] [place] [phone] 14 Jan, 2015 [facility] [address] [facility] [id number] [address] [place] [address] Jan, [facility] [address] [facility] [id number] [address] [place] [phone] Jul, [facility] [address] [facility] [id number] [address] [place] [phone] Jul, [facility] [address] [facility] [id number] [address] [place] [phone] Jul, [facility] [address] [facility] [id number] [address] [place] [phone] Jul, [facility] [address] [facility] [id number] [address] [place] [address] Jul, [facility] [address] [facility] [id number] [address] [place] [phone] Jul, [facility] [address] [facility] [id number] [address] [place] [phone] Jul, [facility] [address] [facility] [id number] [address] [place] [address] Dec, [facility] [address] [id number] [address] [place] [phone] 21 Dec, 2013 [facility] [address] [id number] [address] [place] [phone] 21 Dec, 2013 [facility] [address] [id number] [address] [place] [phone] 21 Dec, 2013 [facility] [address] [id number] [address] [place] [phone] 18 Dec, 2013 [facility] [address] [id number] [address] [place] [phone] 18 Dec, 2013 [facility] [address] [id number] [address] [place] [phone] 15 Dec, 2013 [facility] [address] [id number] [address] [place] [phone] 14 Dec, 2013 [facility] [address] [id number] [address] [place] [phone] Dec, [facility] [address] [id number] [address] [place] [phone] 12 Dec, 2013 [facility] [address] [id number] [address] [place] [phone] Sep, [facility] [address] [id number] [address] [place] [phone] Aug, [facility] [address] [id number] [address] [place] [phone] Aug, [facility] [address] [id number] [address] [place] [phone] Jul, IMMUNIZATIONS No Known Immunizations SOCIAL HISTORY Never Assessed REASON FOR VISIT [facility] PLAN OF CARE VITAL SIGNS MEDICATIONS Unknown Medications RESULTS No Results PROCEDURES No Known procedures INSTRUCTIONS MEDICATIONS ADMINISTERED No Known Medications MEDICAL (GENERAL) HISTORY Type Description Date Surgical History No Surgical history information
--- OUTSIDE RECORDS SUMMARY | 2019-12-24 08:32 | XMS REPORT ---
Author Author Jeferson Naranjo Organization [facility] Address [address] [place] [address] Care Team Providers Care Telephone Services Sales Representative Name Role Phone SKYLER Naranjo Unavailable PROBLEMS Type Condition ICD9-CM Code MVR55-VC Code Onset Dates Condition S tatus SNOMED Code Problem Hep C w/o coma, chronic B18.2 Active [id number] ALLERGIES No Information ENCOUNTERS Encounter Location Date Diagnosis [facility] [address] [id number] [address] [place] [phone] Jan, Encounter for test Z32.00 [facility] [address] [id number] [address] [place] [phone] Dec, STD exposure Z20.2 and Trich omonal infection A59.9 [facility] [address] [facility] [id number] [address] [place] [phone] Dec, Hep C w/o coma, chronic B18. [address] [facility] [address] [facility] [id number] [address] [place] [phone] Dec, Unprotected sexual intercour se Z72.51 and Screen for STD (sexually transmitted disease) Z11.3 [facility] [address] [facility] [id number] [address] [place] [phone] Dec, Hep C w/o coma, chronic B18. [address] [facility] [address] [facility] [id number] [address] [place] [phone] Dec, [facility] [address] [facility] [id number] [address] [place] [phone] Oct, [facility] [address] [id number] [address] [place] [phone] Oct, [facility] [address] [facility] [id number] [address] [place] [phone] Oct, [facility] [id number] [place] [phone] Aug, [facility] [address] [facility] [id number] [address] [place] [phone] Jul, Hep C w/o coma, chronic B18. [address] [facility] [address] [id number] [address] [place] [address] Jul, Cervicitis N72 ; Hepatitis C antibody positive in blood R76.8 ; Low grade squamous intraepithelial lesion (LGSIL) on Papanicolaou smear of cervix R87.612 and IVDU (intravenous drug user) F19.90 [place] [address] [id number] [address] [place] [phone] Sep, [place] [address] [id number] [address] [place] [address] Aug, Screen for STD (sexually tra nsmitted disease) Z11.3 ; Unspecified abdominal pain R10.9 ; Vaginal discharge N89.8 ; Lower abdominal tenderness R10.819 ; Pap smear for cervical cancer screening Z12.4 ; Urinary tract infection, site not specified N39.0 and Unprotected sexual intercourse Z72.51 [facility] [address] [place], [place] [id number] 57 08 Jun, 2015 Candidiasis, vagina 112.1 [place] [address] [id number] [address] [place] [phone] Jan, [facility] [address] [id number] [address] [place] [phone] Jan, [facility] [address] [id number] [address] [place] [address] Jul, [facility] [address] [id number] [address] [place] [phone] Jul, [facility] [id number] [place] [address] Jul, [facility] [address] [id number] [address] [place] [address], [place] [address] Jul, [facility] [address] [id number] [address] [place] [address], [place] [address] Jul, [facility] [address] [id number] [address] [place] [address], [place] [address] Jul, [facility] [address] [id number] [address] [place] [address], [place] [address] Jul, [facility] [address] [id number] [address] [place] [address], [place] [address] Dec, [facility] [address] [id number] [address] [place] [address], [place] [address] Dec, [facility] [address] [id number] [address] [place] [address], [place] [address] Dec, [facility] [address] [id number] [address] [place] [address], [place] [address] Dec, [facility] [address] [id number] [address] [place] [address], [place] [address] 18 Dec, 2013 [facility] [address] [id number] [address] [place] [address], [place] [address] 18 Dec, 2013 [facility] [address] [id number] [address] [place] [address], [place] [address] 15 Dec, 2013 [facility] [address] [id number] [address] [place] [address], [place] [address] 14 Dec, 2013 [facility] [address] [id number] [address] [place] [address], [place] [address] 12 Dec, 2013 [facility] [address] [id number] [address] [place] [address], [place] [address] 12 Dec, 2013 [facility] [address] [id number] [address] [place] [address], [place] [address] 15 Sep, 2010 [facility] [address] [id number] [address] [place] [address] Aug, [facility] [address] [facility] [id number] [address] [place] [address] Aug, [facility] [address] [facility] [id number] [address] [place] [address] Jul, IMMUNIZATIONS No Known Immunizations SOCIAL HISTORY Never Assessed REASON FOR VISIT PLAN OF CARE VITAL SIGNS Height 67 in 2014-07-18 Weight 152.3 lbs 2014-07-18 Temperature 97.6 degrees Fahrenheit 2014-07-18 Blood pressure systolic 118 mmHg 2014-07-18 Blood pressure diastolic 76 mmHg 2014-07-18 MEDICATIONS Unknown Medications RESULTS No Results PROCEDURES Procedure Date Ordered Result Body Site TRICHOMONAS VAGIN, DIR PROBE Jul 18, 2014 CHYLMD TRACH, DNA, AMP PROBE Jul 18, 2014 URINE TEST Jul 18, 2014 CULTURE, BACTERIA, OTHER Jul 18, 2014 INSTRUCTIONS MEDICATIONS ADMINISTERED No Known Medications MEDICAL (GENERAL) HISTORY Type Description Date Surgical History No know Surgical history
--- OUTSIDE RECORDS SUMMARY | 2019-12-24 08:33 | XMS REPORT ---
Author Author Jeferson KING Organization [employer] Address Unknown Phone Unavailable Care Team Providers Care Director Of Enterprise Strategy Name Role Phone JAMAL KING CP Unavailable Allergies No Known Allergies Problems Problem Type Condition ICD-9 Code Onset Dates Condition Statu s Problem Screening examination for venereal disease V74.5 Active Assessment Candidiasis, vagina 112.1 Active Problem Leukorrhea, not specified as infective 623.5 Active Medications No Known Medications Procedures Procedure Coding System Code Date Office Visit, New Pt., Level 2 CPT-4 79473 S ept 2014 Vital Signs Date/Time: Jun 24, 2015 Cardiac Monitoring Heart Rate 60 bpm Weight 152 lbs Height 67 in BMI 23.80 Index Blood Pressure Diastolic 60 mmHg Blood Pressure Systolic 100 mmHg Results No Known Results Summary Purpose [employer] Submission
--- OUTSIDE RECORDS SUMMARY | 2019-12-24 08:33 | XMS REPORT ---
Author Author Jeferson GOSS Organization [employer] Address Unknown Phone Unavailable Care Team Providers Care Assistant Banquet Manager Name Role Phone ERIC GOSS Unavailable Allergies No Known Allergies Problems No Known Problems Medications No Known Medications Results No Known Results Summary Purpose [employer] Submission
--- OUTSIDE RECORDS SUMMARY | 2019-12-24 08:33 | XMS REPORT ---
Author Author Jeferson GOSS Organization [employer] Address Unknown Phone Unavailable Care Team Providers Care Human Resource Consultant Name Role Phone ERIC GOSS CP Unavailable Allergies, Adverse Reactions, Alerts Substance Reaction Event Type N.K.D.A. Info Not Available Non Drug Allergy Problems Problem Type Condition Code Onset Dates Condition Statu s Assessment Unspecified abdominal pain R10.9 A ctive Assessment Vaginal discharge N89.8 Active Assessment Screen for STD (sexually transmitted disease) Z11.3 Active Assessment Urinary tract infection, site not specified N39.0 Active Assessment Unprotected sexual intercourse Z72.51 Active Assessment Lower abdominal tenderness R10.819 A ctive Assessment Pap smear for cervical cancer screening Z12.4 Active Medications Medication Code System Code Instructions Start Date End Date Status Dosage Bactrim DS [facility] [id number] 800-160 MG Orally 2 times a day N 2014Aug 25, 2015 1 tablet Procedures Procedure Coding System Code Date TRICHOMONAS VAGIN, DIR PROBE CPT-4 84156 Aug 22, 2015 CULTURE, BACTERIA, OTHER CPT-4 44223 Aug 22, 2015 No Charge CPT-4 44954 Aug 22, 2015 VENIPUNCT, ROUTINE* CPT-4 98094 Aug 22, 2015 URINE TEST CPT-4 18802 Aug 22, 201 5 Office Visit, Est Pt., Level 3 CPT-4 22183 N 2014 SPECIMEN HANDLING CPT-4 55590 Aug 22, 2015 ACUTE HEPATITIS PANEL CPT-4 13579 Aug 22, 20 15 URINE CULTURE/COLONY COUNT CPT-4 84383 Aug URINALYSIS, AUTO, W/O SCOPE CPT-4 23025 Aug 22, 2015 Vital Signs Date/Time: Aug 22, 2015 Temperature 98.5 F Weight 157.6 lbs Height 67 in BMI 24.68 Index Blood Pressure Diastolic 64 mmHg Blood Pressure Systolic 108 mmHg Cardiac Monitoring Heart Rate 66 bpm Results Name Result Date Reference Range Unit Abnormali ty Flag TEST, URINE (IN HOUSE) Summary Purpose [employer] Submission
--- OUTSIDE RECORDS SUMMARY | 2019-12-24 08:33 | XMS REPORT | Continuity of Care Document ---
Author Organization Unknown Address Unknown Phone Unavailable Allergies Active Description Code Type Severity Reaction Onset Reported/Identified Relationship to Patient Clinical Status Yes No Known Drug Allergies [id number] Drug Allergy Unknown N/A 01/21/2015 Medications There is no data. 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 OPPOSITIONAL DEFIANT 06/10/2010 CHRISTOPHER BARKLEY, SKYLER A 313.81 CD OPPOSITIONAL DEFIANT 12/26/2013 [place] SKYLER A V7 4.5 STD SCREEN 12/26/2013 CHRISTOPHER BARKLEY, SKYLER A V7 4.5 STD SCREEN 07/18/2014 CHRISTOPHER BARKLEY, SKYLER A 62 3.5 LEUKORRHEA NOT SPECIFIED INFECTIVE 01/21/2015 DONAVAN PAZ EXERCISE MANAGER Ot 626 .2 EXCESSIVE MENSTRUATION 06/30/2015 Ot 780.39 05/21/2019 ROXY COREAS DO Ot Z34.9 2 ENCNTR FOR SUPRVSN OF NORMAL PREG, UNSP, 05/21/2019 ROXY COREAS DO Ot Z3A.2 0 20 WEEKS GESTATION OF 05/23/2019 ROXY COREAS DO Ot Z34.9 2 ENCNTR FOR SUPRVSN OF NORMAL PREG, UNSP, 05/23/2019 ROXY COREAS DO Ot Z3A.2 0 20 WEEKS GESTATION OF 10/04/2019 ROXY COREAS DO Ot O48.0 POST-TERM 10/04/2019 ROXY COREAS DO Ot O70.0 FIRST DEGREE PERINEAL LACERATION DURING 10/04/2019 ROXY COREAS DO Ot Z37.0 SINGLE LIVE 10/04/2019 ROXY COREAS DO Ot Z3A.4 0 40 WEEKS GESTATION OF 12/19/2019 ROXY COREAS DO Ot Z34.9 2 ENCNTR FOR SUPRVSN OF NORMAL PREG, UNSP, 12/19/2019 ROXY COREAS DO Ot Z3A.2 0 20 WEEKS GESTATION OF Procedures Code [place] [address] [facility] 12/26/2013 34109 HIV ([facility]) 12/26/2013 71303 GC/C HLAM PROBE (STATE) 12/26/2013 64930 TRIC HOMONAS (IN-HOUSE) 12/26/2013 36026 CULT URE UROGENITAL 12/29/2013 01328 GC/C HLAM PROBE (STATE) 07/18/2014 49155 PREG JOSH TEST, URINE (IN- HOUSE) 07/18/2014 83295 TRIC HOMONAS (IN-HOUSE) 07/18/2014 38182 CULT URE UROGENITAL 07/21/2014 [id number] IN TRODUCE OTH THERAP SUBST IN MOUTH/PHAR 10/01/2019 [id number] RE PAIR PERINEUM SKIN, EXTERNAL APPROACH 10/02/2019 56S0SKV DE LIVERY OF PRODUCTS OF CONCEPTION, EXTE 10/02/2019 Results Test Result Range SUREPATH PAP AND HPV mRNA E6/E7 - 11:37 CLINICAL INFORMATION: CERVICITIS NRG LMP: 07/26/18 NRG PREV. PAP: NRG PREV. BX: NRG SOURCE: Cervix NRG STATEMENT OF ADEQUACY: NRG INTERPRETATION/RESULT: NRG LICENSED MASS REAL ESTATE APPRAISER: NRG HPV mRNA E6/E7, SUREPATH VIAL Not Detected NOT DETECTED REVIEW LICENSED MASS REAL ESTATE APPRAISER: NRG INFECTION: NRG COMMENT NRG HEP C PCR QUANT (Graph)-APPROVAL REQUIRE D - 08/10/18 11:37 HCV RNA, QUANTITATIVE REAL TIME PCR [id number] IU/mL NOT DETECTED HCV RNA, QUANTITATIVE REAL TIME PCR 5.13 Log IU/mL NOT DETECTED COMMENT NRG HCV RNA, QUANTITATIVE REAL TIME PCR - 12:48 HCV RNA, QUANTITATIVE REAL TIME PCR [id number] IU/mL NOT DETECTED HCV RNA, QUANTITATIVE REAL TIME PCR 6.03 Log IU/mL NOT DETECTED COMMENT NRG Complete blood count (CBC) with automate d white blood cell (WBC) differential - 10/01/19 20:16 Blood leukocytes automated count (number/volume) 9.9 10*3/uL 4.3-11.0 Blood erythrocytes automated count (number/volume) 3.64 10*6/uL 4.35-5.85 Venous blood hemoglobin measurement (mass/volume) 10.9 g/dL 11.5-16.0 Blood hematocrit (volume fraction) 31 % 35-52 Automated erythrocyte mean corpuscular volume 86 [ foz_us] 80-99 Automated erythrocyte mean corpuscular h emoglobin (mass per erythrocyte) 30 pg 25-34 Automated erythrocyte mean corpuscular h emoglobin concentration measurement (mass/volume) 35 g/dL 32-36 Automated erythrocyte distribution width ratio 12. 8 % 10.0- 14.5 Automated blood platelet count (count/volume) 187 10*3/uL 130-400 Automated blood platelet mean volume measurement 10.0 [foz_us] 7.4-10.4 Automated blood neutrophils/100 leukocytes 66 % 42-75 Automated blood lymphocytes/100 leukocytes 27 % 12-44 Blood monocytes/100 leukocytes 6 % 0-12 Automated blood eosinophils/100 leukocytes 1 % 0-10 Automated blood basophils/100 leukocytes 0 % 0-10 Blood neutrophils automated count (number/volume) 6.5 10*3 1.8-7.8 Blood lymphocytes automated count (number/volume) 2.7 10*3 1.0-4.0 Blood monocytes automated count (number/volume) 0. 6 10*3 0.0-1.0 Automated eosinophil count 0.1 10*3/uL 0 .0-0.3 Automated blood basophil count (count/volume) 0.0 10*3/uL 0.0-0.1 Blood type T Indirect antibody screen pa shiv - 10/01/19 20:16 WRISTBAND NUMBER [id number] NRG ABO+Rh group ON NRG Blood group antibody screen NEGATIVE NR G RH IMMUNE GLOBULIN RHOPHYLAC - 10/03/19 05:33 RH IMMUNE GLOBULIN RHOPHYLAC PRSMD TRFSD 10/03/19 1904 NRG cell screen - 10/03/19 05:33 WRISTBAND NUMBER [id number] NRG SCREEN LOT NUMBER [id number] NR Erythrocytes./1000 erythrocytes 10/19/19 NR Lot number [id number] NRG Hemoglobin T Hematocrit panel NEGATIVE NEGATIVE Rh immune globulin screen 1 300ug NRG Rh immune globulin screen 12/03/21 NRG Complete blood count (CBC) with automate d white blood cell (WBC) differential - 10/03/19 05:53 Blood leukocytes automated count (number/volume) 10.1 10*3/uL 4.3-11.0 Blood erythrocytes automated count (number/volume) 3.33 10*6/uL 4.35-5.85 Venous blood hemoglobin measurement (mass/volume) 9.8 g/dL 11.5-16.0 Blood hematocrit (volume fraction) 29 % 35-52 Automated erythrocyte mean corpuscular volume 88 [ foz_us] 80-99 Automated erythrocyte mean corpuscular h emoglobin (mass per erythrocyte) 29 pg 25-34 Automated erythrocyte mean corpuscular h emoglobin concentration measurement (mass/volume) 33 g/dL 32-36 Automated erythrocyte distribution width ratio 12. 7 % 10.0- 14.5 Automated blood platelet count (count/volume) 155 10*3/uL 130-400 Automated blood platelet mean volume measurement 10.2 [foz_us] 7.4-10.4 Automated blood neutrophils/100 leukocytes 62 % 42-75 Automated blood lymphocytes/100 leukocytes 32 % 12-44 Blood monocytes/100 leukocytes 6 % 0-12 Automated blood eosinophils/100 leukocytes 1 % 0-10 Automated blood basophils/100 leukocytes 0 % 0-10 Blood neutrophils automated count (number/volume) 6.2 10*3 1.8-7.8 Blood lymphocytes automated count (number/volume) 3.2 10*3 1.0-4.0 Blood monocytes automated count (number/volume) 0. 6 10*3 0.0-1.0 Automated eosinophil count 0.1 10*3/uL 0 .0-0.3 Automated blood basophil count (count/volume) 0.0 10*3/uL 0.0-0.1 PT/INR - 10/19/19 10:56 INR 1.0 NRG PT 10.3 sec 9.0-11.5 HCV RNA, QUANTITATIVE REAL TIME PCR - 10:56 HCV RNA, QUANTITATIVE REAL TIME PCR [id number] IU/mL NOT DETECTED HCV RNA, QUANTITATIVE REAL TIME PCR 6.27 Log IU/mL NOT DETECTED COMMENT NRG HEP C, FIBROSURE (INSURED ONLY)-APPROVAL REQUIRED - 11/28/19 12:01 FIBROSIS SCORE 0.07 NRG FIBROSIS STAGE F0 NRG FIBROSIS INTERPRETATION SEE NOTE NRG NECROINFLAMMAT ACT SCORE 0.66 NRG NECROINFLAMMAT ACT GRADE A3 NRG NECROINFLAMMAT INTERP SEE NOTE NRG ALPHA 2 MACROGLOBULIN 170 mg/dL 106-279 HAPTOGLOBIN 100 mg/dL 43-212 APOLIPOPROTEIN A1 134 mg/dL 101-198 TOTAL BILIRUBIN 0.6 mg/dL 0.2-1.2 GGT 12 U/L 3-40 ALT 156 U/L 6-29 REFERENCE ID [id number] NRG FOOTNOTE SEE NOTE NRG Encounters ACCT No. Visit Date/Time Discharge Status Pt. Type Provider Facility Loc./Unit Complaint [id number] 10/19/2019 10:40:00 10/19/2019 23:59:5 9 CLS Outpatient [facility] [id number] 11/28/2019 11:40:00 Document Registration [id number] 10/19/2019 10:40:00 Document Registration [id number] 12/26/2018 11:20:00 Document Registration [id number] 08/10/2018 10:40:00 Document Registration [id number] 07/18/2014 13:23:00 07/18/2014 23:59: 59 CLS Outpatient SKYLER WHITE APRN [id number] 12/26/2013 17:36:00 12/26/2013 23:59: 59 CLS Outpatient SKYLER WHITE APRN [id number] 12/19/2019 14:55:00 020 15:50:00 DIS Emergency STEFANY MOLINA [facility] ER RINGWORM [id number] 10/01/2019 19:00:00 019 12:00:00 DIS Inpatient ROXY COREAS DO [facility] LDRP INDUCTION [id number] 05/17/2019 13:10:00 019 23:59:59 CLS Outpatient ROXY CROEAS DO [facility] RAD FETUS PRESENT DURING [place] EGNANCY IN SECOND TRIMESTER [id number] 01/21/2015 12:58:00 015 14:14:00 DIS Emergency DONAVAN PAZ APRN [facility] ER HEAVY MENSTRAL BLEEDING [id number] 06/30/2015 16:19:00 Document Registration
== END 2019-12-19 15:50 | disposition home or self-care (01) ==
LOC: EDUNIT# 14:55 → ER 14:55
DX: R21 Rash and other nonspecific skin eruption (principal); Z87.891 Personal history of nicotine dependence; Z82.49 Family history of ischemic heart disease and other diseases of the circulatory system
CPT/HCPCS: 99282